=== PATIENT | male | born 1950 | race Caucasian/White ===

== ENCOUNTER 2018-03-22 15:02 | Emergency (ER) | payer OTHER, SELFPAY ==
[2018-03-22 15:19] VITALS: BP 163/95; PULSE 110; RESP 26; TEMP 36.1; O2SAT 96; BMI 22.5
--- NOTE | 2018-03-22 15:27 | DI.CT.S_ITS ---
PROCEDURE: CT ANGIO CHEST PE PROTOCOL INDICATIONS: chest pain with lung cancer TECHNIQUE: After the administration of intravenous contrast, 2 mm thick sections acquired from the pulmonary apices to the posterior costophrenic angles. 3-dimensional maximum intensity projection (MIP) coronal and sagittal reformats were then acquired through the thorax. For radiation dose reduction, the following was used: automated exposure control, adjustment of mA and/or kV according to patient size. COMPARISON: [facility], CT, ABDOMEN/PELVIS WITH CONTRAST, 01/12/2018, 13:35. [facility], CT, THORAX WITH CONTRAST, 01/22/2018, 8:59. FINDINGS: Image quality: Impression limited by suboptimal contrast opacification and beam hardening artifact from patient's inability to raise arms. Pulmonary arteries: Pulmonary arteries demonstrate no intraluminal filling defects to suggest central pulmonary embolism. Evaluation of distal subsegmental branches is limited by suboptimal contrast opacification. There is enlargement of the pulmonary arteries, with the main pulmonary artery measuring up to 3.2 cm suggestive of pulmonary arterial hypertension. Lungs and pleura: There is a right lower lobe perihilar mass which is increased in size, measuring approximately 4.9 x 3.0 cm in transverse dimension. There is associated adjacent consolidation within the right lower lobe along the major fissure compatible with postobstructive consolidation. There is also bandlike consolidation or atelectasis within the inferior right middle lobe. There are moderate bilateral emphysematous changes with a basilar predominance. No pleural effusions or pneumothorax. Central and peripheral airways are patent. Mediastinum: Heart size is normal, without pericardial effusion. Thoracic aorta is normal in caliber and enhancement. There is markedly increased mediastinal and hilar lymphadenopathy with confluent enlarged lymph nodes encasing the trachea, elodia, and bilateral bronchial structures. There is also encasement of the pulmonary arteries without associated high-grade intrinsic mass effect. Esophagus is normal in caliber, without hiatal hernia. Bones and chest wall: No suspicious bony lesions. Ribs and thoracic spine appear intact throughout. There is markedly increased confluent lymphadenopathy at the thoracic inlet including bilateral lower cervical and supraclavicular lymphadenopathy. No axillary lymphadenopathy. Abdomen: Visualized upper abdomen redemonstrates multiple hepatic cysts and small low-density foci in the liver which are too small to characterize. The previous identified right hepatic lobe hemangioma is not well-visualized on the current phase of imaging. IMPRESSION: 1. No central pulmonary embolism, with evaluation of distal subsegmental branches limited by suboptimal contrast opacification. 2. Findings consistent with progression of disease with increase in size of a right lower lobe perihilar mass with increased post obstructive consolidation in the right lower lobe, increased mediastinal and hilar lymphadenopathy as well as supraclavicular and lower cervical lymphadenopathy. 3. Multiple hepatic cysts identified as well as smaller low-density foci likely representing cysts. Dictated by: Dwayne Katz M.D. on 03/22/2018 at 17:04 Approved by: Dwayne Katz M.D. on 03/22/2018 at 17:13
[2018-03-22 15:51] LABS: Add Manual Diff / Slide Review NO; Basophils Percent Auto 0.8 % (0-2); Eosinophils Percent Auto 5.2 % (2-4); Hematocrit 41.7 % (41-53); Lymphocytes Percent Auto 13.2 % (25-40); Mean Corpuscular HGB Conc 33.6 % (30-36); Mean Corpuscular Hemoglobin 30.6 PG (26-34); Mean Corpuscular Volume 91.1 fL (80-100); Monocytes Percent Auto 8.4 % (3-14); Neutrophils Absolute Auto 8900 /uL (3000-5900); Neutrophils Percent Auto 72.4 % (50-75); Platelet Count 273 X10^3/uL (150-400); Red Blood Cell Count 4.58 X10^6/uL (4.5-5.9); Red Cell Distribution Width 13.1 % (11.6-14.8); White Blood Cell Count 12.3 X10^3/uL (4.5-11.0)
[2018-03-22 16:10] LABS: Alanine Aminotransferase 33 IU/L (21-72); Albumin 4.1 g/dL (3.5-5.0); Albumin Globulin Ratio 1.1 (1.0-2.8); Alkaline Phosphatase 87 U/L (38-126); Aspartate Aminotransferase 31 IU/L (17-59); BUN Creatinine Ratio 23.8 (6-22); Bilirubin Total 0.6 mg/dL (0.2-1.3); Calcium 9.1 mg/dL (8.4-10.2); Creatine Kinase 71 U/L (55-170); Estimated Glomerular Filt Rate > 60.0 mL/min (>60); Globulin 3.7 g/dL (1.7-4.1); Glucose 138 mg/dL (80-110); HEMOLYSIS 24 (0-50); Lipase 45 U/L (23-300); Potassium 4.3 mmol/L (3.4-5.1); Sodium 136 mmol/L (137-145); Total Protein 7.8 g/dL (6.3-8.2)
--- NOTE | 2018-03-22 16:14 | ED_ITS ---
HPI - SOB/Dyspnea General Chief Complaint: Shortness of Breath/Dyspnea Stated Complaint: UNABLE TO BREATH WELL HAS LUNG CANCER Time Seen by Provider: 03/22/18 15:24 Source: patient Mode of arrival: ambulatory Limitations: no limitations History of Present Illness The patient is a 67-year-old male who presents with increasing right-sided. He was recently diagnosed with lung cancer. He has a known lung mass on the right side currently being worked up. Awaiting for final biopsy results before starting chemo. He is having increasing pain with some shortness of breath. He has not taken anything at home for pain. It seems to be in the same place on nonradiating. It has been progressively getting worse over the last couple days but definitely worse today. MD Complaint: shortness of breath and chest pain Related Data Home Medications Medication Instructions Recorded Confirmed amoxicillin-pot clavulanate 1 tab PO TID 03/22/18 03/22/18 ibuprofen 400 mg PO QID PRN 03/22/18 03/22/18 Allergies Allergy/AdvReac Type Severity Reaction Status Date / Time No Known Drug Allergies Allergy Verified 03/22/18 15:22 Review of Systems Review of Systems All systems reviewed & are unremarkable except as noted in HPI and below Constitutional Denies chills, Denies fever(s), Denies lethargy and Denies weakness Cardiovascular Reports chest pain (Right-sided), Denies irregular heart rhythm, Denies lightheadedness, Denies palpitations and Denies orthopnea Respiratory Reports as per HPI Gastrointestinal Gastrointestinal: Denies abdominal pain, Denies change in bowel habits, Denies diarrhea, Denies nausea and Denies vomiting Musculoskeletal Denies back pain, Denies muscle weakness, Denies numbness and Denies tingling Integumentary/Breasts Denies pruritus, Denies erythema, Denies rash and Denies wounds Neurologic Denies numbness, Denies tingling and Denies weakness Endocrine Denies palpitations PFSH Medical History Metastatic lung cancer (metastasis from lung to other site) (Acute) TIA (transient ischemic attack) (Acute) Social History Smoking Status: Former smoker Exam Initial Vital Signs Initial Vital Signs: Vital Signs Temperature 97.0 F L 03/22/18 15:19 Pulse Rate 110 H 03/22/18 15:19 Respiratory Rate 26 H 03/22/18 15:19 Blood Pressure 163/95 H 03/22/18 15:19 Pulse Oximetry 96 03/22/18 15:19 Const General: cooperative and well developed Nutritional Appearance: well nourished Orientation: alert, awake, oriented x3 and not confused Chest Chest: normal inspection of the chest Resp Effort & Inspection: normal respiratory effort, able to speak in complete sentences, no respiratory distress and no use of accessory muscles Auscultation: clear to auscultation bilaterally, no rales, no rhonchi and no wheezes Cardio Rate: regular rate Rhythm: regular rhythm Heart Sounds: no click, no gallops, no murmurs and no rubs Pulses: normal peripheral pulses Skin General: no rashes or lesions noted, No jaundice and No petechiae Neuro General: alert, oriented x3, gait normal and no focal motor deficits Speech: speech normal Course Orders Ordered: Discontinued Medications Sodium Chloride (Normal Saline 0.9%) 1,000 mls @ 150 mls/hr IV CONT ONEL Last Infusion: 03/22/18 17:58 Dose: 0 mls/hr Infusion: 03/22/18 17:03 Dose: 1,000 mls/hr Admin: 03/22/18 17:01 Dose: 150 mls/hr Ketorolac Tromethamine (Toradol) 30 mg IV NOW ONE Stop: 03/22/18 16:09 Last Admin: 03/22/18 17:01 Dose: 30 mg Vital Signs - 8 hr 03/22/18 15:19 03/22/18 16:30 03/22/18 18:02 Temperature 97.0 F L Pulse Rate 110 H 96 H 90 Respiratory Rate 26 H 15 18 Blood Pressure 163/95 H 133/75 H Blood Pressure [Right Arm] 138/89 H Pulse Oximetry 96 95 96 MDM - SOB/Dyspnea Differential Diagnosis Likely congestive heart failure, community acquired pneumonia, asthma with exacerbation and pulmonary embolism Medical Records Attestation: I reviewed the patient's medical records. Lab Data Attestation: I reviewed the patient's lab results. Result diagrams: 03/22/18 15:40 03/22/18 15:40 Lab Results 03/22/18 03/22/18 Range/Units 15:40 15:40 WBC 12.3 H (4.5-11.0) X10^3/uL RBC 4.58 (4.5-5.9) X10^6/uL Hgb 14.0 (13.5-17.5) g/dL Hct 41.7 (41-53) % MCV 91.1 (80-100) fL MCH 30.6 (26-34) PG MCHC 33.6 (30-36) % RDW 13.1 (11.6-14.8) % Plt Count 273 (150-400) X10^3/uL Neut % (Auto) 72.4 (50-75) % Lymph % (Auto) 13.2 L (25-40) % Marion % (Auto) 8.4 (3-14) % Eos % (Auto) 5.2 H (2-4) % Baso % (Auto) 0.8 (0-2) % Neut # (Auto) 8900 H (7645-1001) /uL Sodium 136 L (137-145) mmol/L Potassium 4.3 (3.4-5.1) mmol/L Chloride 96.0 L (98-107) mmol/L Carbon Dioxide 26.0 (22-32) mmol/L BUN 19.0 (9-20) mg/dL Creatinine 0.80 (0.66-1.25) mg/dL Estimated GFR > 60.0 (>60) mL/min BUN/Creatinine Ratio 23.8 H (6-22) Glucose 138 H (80-110) mg/dL Calcium 9.1 (8.4-10.2) mg/dL Total Bilirubin 0.6 (0.2-1.3) mg/dL AST 31 (17-59) IU/L ALT 33 (21-72) IU/L Alkaline Phosphatase 87 (38-126) U/L Total Creatine Kinase 71 (55-170) U/L CK-MB (CK-2) TNP Troponin I < 0.012 (0.01-0.034) ng/mL Total Protein 7.8 (6.3-8.2) g/dL Albumin 4.1 (3.5-5.0) g/dL Globulin 3.7 (1.7-4.1) g/dL Albumin/Globulin Ratio 1.1 (1.0-2.8) Lipase 45 (23-300) U/L Imaging Data CT PE: Radiologist's impression: PROCEDURE: CT ANGIO CHEST PE PROTOCOL INDICATIONS: chest pain with lung cancer TECHNIQUE: After the administration of intravenous contrast, 2 mm thick sections acquired from the pulmonary apices to the posterior costophrenic angles. 3-dimensional maximum intensity projection (MIP) coronal and sagittal reformats were then acquired through the thorax. For radiation dose reduction, the following was used: automated exposure control, adjustment of mA and/or kV according to patient size. COMPARISON: [facility], CT, ABDOMEN/PELVIS WITH CONTRAST, 01/12/2018, 13: 35. [facility], CT, THORAX WITH CONTRAST, 01/22/2018, 8:59. FINDINGS: Image quality: Impression limited by suboptimal contrast opacification and beam hardening artifact from patient's inability to raise arms. Pulmonary arteries: Pulmonary arteries demonstrate no intraluminal filling defects to suggest central pulmonary embolism. Evaluation of distal subsegmental branches is limited by suboptimal contrast opacification. There is enlargement of the pulmonary arteries, with the main pulmonary artery measuring up to 3.2 cm suggestive of pulmonary arterial hypertension. Lungs and pleura: There is a right lower lobe perihilar mass which is increased in size, measuring approximately 4.9 x 3.0 cm in transverse dimension. There is associated adjacent consolidation within the right lower lobe along the major fissure compatible with postobstructive consolidation. There is also bandlike consolidation or atelectasis within the inferior right middle lobe. There are moderate bilateral emphysematous changes with a basilar predominance. No pleural effusions or pneumothorax. Central and peripheral airways are patent. Mediastinum: Heart size is normal, without pericardial effusion. Thoracic aorta is normal in caliber and enhancement. There is markedly increased mediastinal and hilar lymphadenopathy with confluent enlarged lymph nodes encasing the trachea, elodia , and bilateral bronchial structures. There is also encasement of the pulmonary arteries without associated high-grade intrinsic mass effect. Esophagus is normal in caliber, without hiatal hernia. Bones and chest wall: No suspicious bony lesions. Ribs and thoracic spine appear intact throughout. There is markedly increased confluent lymphadenopathy at the thoracic inlet including bilateral lower cervical and supraclavicular lymphadenopathy. No axillary lymphadenopathy. Abdomen: Visualized upper abdomen redemonstrates multiple hepatic cysts and small low-density foci in the liver which are too small to characterize. The previous identified right hepatic lobe hemangioma is not well-visualized on the current phase of imaging. IMPRESSION: 1. No central pulmonary embolism, with evaluation of distal subsegmental branches limited by suboptimal contrast opacification. 2. Findings consistent with progression of disease with increase in size of a right lower lobe perihilar mass with increased post obstructive consolidation in the right lower lobe, increased mediastinal and hilar lymphadenopathy as well as supraclavicular and lower cervical lymphadenopathy. 3. Multiple hepatic cysts identified as well as smaller low-density foci likely representing cysts. Dictated by: Dwayne Katz M.D. on 03/22/2018 at 17:04 Approved by: Dwayne Katz M.D. on 03/22/2018 at 17:13 ECG Data Attestation: I personally reviewed and interpreted this ECG as follows: Prior ECG tracings: available for review Interpretation: Normal sinus rhythm rate [address] changes similar to previous EKG MDM Narrative Medical decision making narrative: Patient feeling much better after Toradol. Mass is likely growing which is causing pain. He is supposed to get an MRI of his brain this week difficulty scheduling that. He is given information. Discharge Plan Departure Patient Disposition: Home, Self-Care Clinical Impression: Lung mass Discharge Date/Time: 03/22/18 18:01 Interventions: ED Discharge Assessment Last Done: 03/22/18 18:02 Instructions: Lung Cancer Activity Restrictions/Additional Instructions: *You have been diagnosed with lung mass *What to do: [facility] scheduling for MRI at [phone] *Take medications as directed -ibuprofen 600 mg every 6-8 hours -Tylenol 650 mg every 4-6 hr *Follow up with your primary care provider in 2-3 days *Return to ER if you should have increasing chest pain, shortness of breath or any new, worsening or concerning symptoms Prescriptions: No Action ibuprofen 400 mg Tablet 400 mg PO QID PRN (Reason: Pain (Scale Score 1-3)) RF: 0 amoxicillin-pot clavulanate 500-125 mg Tablet 1 tab PO TID RF: 0 Referrals: Kei Tan MD [Primary Care Provider] -
[2018-03-22 16:27] LABS: Troponin I < 0.012 ng/mL (0.01-0.034)
[2018-03-22 16:30] VITALS: BP 138/89; PULSE 96; RESP 15; O2SAT 95
[2018-03-22] MEDS: KETOROLAC 60 MG/2 ML VIAL 30 MG IV (17:01)
[2018-03-22] MEDS: SODIUM CHLORIDE 0.9% 1,000 ML 150 ML IV (17:01)
[2018-03-22 18:02] VITALS: BP 133/75; PULSE 90; RESP 18; O2SAT 96
== END 2018-03-22 18:01 | disposition home or self-care (01) ==
PROVIDERS: Emergency Provider Emergency Medicine; Family Provider Family Medicine; PCP Family Medicine
DX: R91.8 Other nonspecific abnormal finding of lung field (principal); C34.90 Malignant neoplasm of unspecified part of unspecified bronchus or lung
CPT/HCPCS: 36591; 71275; 80053; 82550; 82553; 83690; 84484; 85025; 93005; 96361; 96374; 99283; 99285; J1885; Q9967

== ENCOUNTER → 2018-03-29 16:14 | Outpatient (CLI) | payer OTHER, SELFPAY ==
--- NOTE | 2018-03-29 16:15 | DI.MRI.S_ITS ---
PROCEDURE: MR HEAD/BRAIN WO/W CON INDICATIONS: Staging metastatic lung ca TECHNIQUE: Noncontrast axial T1 spin echo, axial T2 fast spin echo, sagittal and axial FLAIR, coronal T2 fast spin echo, axial gradient echo, axial diffusion and ADC through the brain. After the administration of contrast, axial and coronal 3D VIBE or T1 spin echo with fat saturation through the brain. COMPARISON: [facility], , STROKE PROTOCOL, 06/25/2016, 15:39. FINDINGS: Image quality: Excellent. CSF Spaces: Basal cisterns are patent. No extra-axial fluid collections. Ventricles are normal in size and shape. Brain: No midline shift. No intracranial bleeds or masses. No abnormal intracranial enhancement. The brainstem appears normal. Diffusion-weighted images demonstrate no acute ischemic insults. Increased T2 signal in the white matter most prominent in the right parietal and left frontal lobes slightly increased since 2016. Normal intravascular flow voids are present. Skull and face: Calvarial marrow is normal in signal. Orbits appear normal. Sinuses: Sinuses and mastoids appear clear. IMPRESSION: 1. No MRI evidence of intracranial metastasis. 2. Increased T2 signal in the white matter of the left frontal and right parietal lobes most consistent with chronic benign ischemic change slightly progressed since the previous study. Dictated by: Isiah Rice M.D. on 03/29/2018 at 17:03 Approved by: Isiah Rice M.D. on 03/29/2018 at 17:10
== END ==
PROVIDERS: PCP Family Medicine; Visit Provider Internal Medicine Hematology & Oncology
DX: C34.90 Malignant neoplasm of unspecified part of unspecified bronchus or lung (principal)
CPT/HCPCS: 70553; A9579

== ENCOUNTER → 2018-04-06 15:48 | Outpatient (CLI) | payer OTHER, SELFPAY ==
[2018-04-07 06:53] LABS: Specimen Label KIT TEST
== END ==
PROVIDERS: PCP Family Medicine; Visit Provider Internal Medicine Hematology & Oncology
DX: C34.31 Malignant neoplasm of lower lobe, right bronchus or lung (principal)
CPT/HCPCS: 36415

== ENCOUNTER → 2018-04-09 11:08 | Outpatient (CLI) | payer OTHER, SELFPAY ==
--- NOTE | 2018-04-09 12:07 | DI.CT.S_ITS ---
PROCEDURE: CT SOFT TISSUE NECK W CON INDICATIONS: STAGING lung ca TECHNIQUE: After the administration of intravenous contrast, 3.0 mm axial sections acquired from the sella to the aortic arch. Additional oblique axial 3.0 mm sections acquired through the pharynx. 3 mm thick coronal and sagittal reformats were generated. For radiation dose reduction, the following was used: automated exposure control. COMPARISON: [facility], CT, SOFT TISSUE NECK W CONTRAST, 10/02/2016, 12:15. FINDINGS: Image quality: Excellent. Lymph nodes: Enlarged supraclavicular lymph nodes are seen on both sides. A group of lymph nodes of the left supraclavicular region measures greater than 6 cm, when measured together. Vessels: Visualized vasculature appears patent. Neck spaces: On the prior examination, there was seen an enhancing lesion in the left floor of the mouth. This is no longer definitely seen. The oropharynx, nasopharynx, and pharynx demonstrate no mucosal lesions. The vocal cords, false vocal cords, pyriform sinuses, epiglottis, vallecula, and tongue base all appear normal. Extramucosal spaces appear unremarkable. Glands: The parotid and submandibular glands appear normal. Thyroid gland demonstrates no significant CT abnormality. Miscellaneous: Visualized brain and orbits appear normal. A small right-sided pleural effusion is seen. Mild emphysematous changes can be seen at the lung apices. Superficial soft tissues appear normal. Bones: No suspicious bony lesions. Visualized sinuses and mastoids appear unremarkable. Cervical spine degenerative changes are seen, with at least moderate disc space narrowing seen from C3-C4 through C6-C7. Mild grade 1 retrolisthesis is seen at C3-C4. IMPRESSION: Enlarged supraclavicular lymph nodes, left worse than right. The previously seen left floor of the mouth lesion is no longer seen. There is a small right-sided pleural effusion seen. Incidental note is made of: Cervical spine degenerative changes Dictated by: Gualberto Michel M.D. on 04/09/2018 at 12:19 Approved by: Gualberto Michel M.D. on 04/09/2018 at 12:24
--- NOTE | 2018-04-09 12:07 | DI.CT.S_ITS ---
PROCEDURE: CT CHEST ABD PEL W CON INDICATIONS: 67-year-old male with lung carcinoma. TECHNIQUE: After the administration of oral and intravenous contrast, 5 mm thick sections acquired from the lung apices to the symphysis. 5 mm coronal and sagittal reformats were performed, with additional 7 mm coronal MIP reformats through the lungs. For radiation dose reduction, the following was used: automated exposure control, adjustment of mA and/or kV according to patient size. COMPARISON: Merged With [facility], CT, CT ANGIO CHEST PE PROTOCOL, 03/22/2018, 16:18. Outside Film, [place], PET NECK TO MID THIGH, 02/12/2018, 17:13. Merged With [facility], CT, THORAX WITH CONTRAST, 01/22/2018, 8:59. Merged With [facility], CT, ABDOMEN/PELVIS WITH CONTRAST, 01/12/2018, 13:35. FINDINGS: Image quality: Excellent. CHEST: Lungs and pleura: Previously noted asymmetric right perihilar air space opacities and groundglass opacities have significantly decreased but not completely resolved. Scattered ground glass opacities are now present in the posterior left upper lobe. Basilar predominant multiple intrapulmonary cysts are again noted. Trace dependent right pleural effusion is now present. No pneumothorax. Central and peripheral airways appear patent and normal in caliber. Mediastinum: Heart size is normal. No pericardial effusion. Confluent bilateral supraclavicular adenopathy is again noted. Widespread mediastinal and bilateral hilar adenopathy is also unchanged. Thoracic aorta and central pulmonary arteries are normal in size. Esophagus is normal in caliber. No hiatal hernia. Chest wall: No axillary or supraclavicular adenopathy by size criteria. Thyroid gland is normal in size. ABDOMEN: Solid organs: Liver is normal in size, with multiple variably-sized hepatic cysts again noted. Additional 2.0 cm right hepatic lobe hemangioma is also present, with characteristic peripheral contrast puddling. Gallbladder wall thickness is normal. Biliary system is non dilated. Pancreas enhances normally. Spleen is normal in size and enhancement. No adrenal nodules. Kidneys demonstrate normal size and enhancement, without hydronephrosis. Peritoneum and bowel: Bowel loops demonstrate normal wall thickness and caliber. The appendix is normal. There is moderate sigmoid colon diverticulosis. No free fluid or air. Nodes and vessels: No retroperitoneal or mesenteric adenopathy by size criteria. Aorta and inferior vena cava are normal in size, with aortoiliac atherosclerosis. Miscellaneous: There is small fat-containing periumbilical ventral hernia. PELVIS: Genitourinary: Bladder wall thickness is normal. Prostate gland is normal in overall size. Miscellaneous: No inguinal hernias or adenopathy. Bones: No suspicious bony lesions. No vertebral body compression fractures. There is multilevel lumbar and lower thoracic spine disc degeneration. 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 IMPRESSION: 1. No significant interval change in bulky bilateral supraclavicular adenopathy, as well as mediastinal and bilateral hilar adenopathy. Patient will be scheduled for ultrasound-guided biopsy of the supraclavicular adenopathy. 2. Previously noted right perihilar pneumonia has decreased but not resolved. New clustered groundglass nodular opacities in the inferior left upper lobe are present, in a tree in bud morphology consistent with infectious small airways disease. 3. 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 4. Right hepatic lobe benign hemangioma again incidentally noted, as well as multiple variably sized hepatic cysts. 5. Moderate sigmoid colon diverticulosis. 6. Small fat-containing periumbilical ventral hernia. Dictated by: Edwar Merida M.D. on 04/09/2018 at 13:38 Approved by: Edwar Merida M.D. on 04/09/2018 at 14:03
== END ==
PROVIDERS: PCP Family Medicine; Visit Provider Internal Medicine Hematology & Oncology
DX: R59.0 Localized enlarged lymph nodes (principal); J18.9 Pneumonia, unspecified organism; D18.00 Hemangioma unspecified site; J90 Pleural effusion, not elsewhere classified; C34.31 Malignant neoplasm of lower lobe, right bronchus or lung
CPT/HCPCS: 70491; 71260; 74177; 80053; 82378; 85025; 85610; 85730; 99215; Q9967

== ENCOUNTER 2018-04-14 12:10 | Day surgery (SDC) | payer OTHER, SELFPAY ==
[2018-04-12 13:42] VITALS: BMI 24.4
--- NOTE | 2018-04-14 | DI.RAD.S_ITS ---
PROCEDURE: XR CHEST 1V INDICATIONS: PORT A CATH TECHNIQUE: One view of the chest was acquired. COMPARISON: [facility], CT, CT ANGIO CHEST PE PROTOCOL, 03/22/2018, 16:18. [facility], CT, CT CHEST ABD PEL W CON, 04/09/2018, 12:13. FINDINGS: Surgical changes and devices: Right-sided port with tip overlying the proximal SVC.. Lungs and pleura: No pleural effusions or pneumothorax. Lobulated mass density in the right lower lobe medially. Interstitial stranding densities again evident bilaterally.. Mediastinum: Mediastinal contours appear normal. Heart size is normal. Bones and chest wall: Soft tissue fullness in the left supraclavicular fossa compatible with known lymphadenopathy. No suspicious bony lesions. Overlying soft tissues appear unremarkable. IMPRESSION: 1. Interval placement of right-sided Port-A-Cath with expected appearance. 2. Bilateral diffuse pulmonary interstitial prominence. 3. Apparent right infrahilar mass. Dictated by: Alverto Uribe M.D. on 04/14/2018 at 14:38 Approved by: Alverto Uribe M.D. on 04/14/2018 at 14:43
[2018-04-14 12:35] VITALS: BP 124/81; PULSE 84; RESP 16; TEMP 37; O2SAT 95; BMI 24.4
[2018-04-14] MEDS: FAMOTIDINE 20 MG/50 ML PIGGYBACK 200 MG IV (12:50)
[2018-04-14] MEDS: LACTATED RINGERS 1,000 ML 42 ML IV (13:00)
[2018-04-14] MEDS: CEFAZOLIN 2 GM/100 ML FROZ.PIGGY IV (13:10)
--- NOTE | 2018-04-14 13:35 | SUR.OPER ---
Supine on padded OR bed, head on pillow, arm padded and tucked at side, legs uncrossed, safety belt at thigh, tape over blanket over lower legs .
[2018-04-14] MEDS: BUPIVACAINE 0.5% (PF) 30 ML VIAL INJ (13:43)
[2018-04-14] MEDS: LIDOCAINE 1% W/EPI INJ 20 ML INJ (13:43)
[2018-04-14] MEDS: SODIUM CHLORIDE 0.9% FLUSH 10 ML IV (13:45)
[2018-04-14 13:58] VITALS: BP 92/59; PULSE 80; RESP 16; TEMP 36.4; O2SAT 92
--- NOTE | 2018-04-14 13:58 | PM.HP.1 ---
History of Present Illness Date Patient Seen: 04/14/18 Time Patient Seen: 13:58 Chief complaint: hailey cath removal [id number] Narrative: Mr. Del Cid is a pleasant 67-year-old gentleman who was recently diagnosed with stage IV lung cancer. He presents here today to have a Port-A-Cath placed. He has a notable mass on the left side of his chest and underwent a node biopsy today. There is a Band-Aid present in the supraclavicular region. Patient History Medical History Chronic cough (Acute) GERD (gastroesophageal reflux disease) (Acute) HTN (hypertension) (Acute) Hyperlipidemia (Acute) Mass (Acute) Metastatic lung cancer (metastasis from lung to other site) (Acute) TIA (transient ischemic attack) (Acute) Family & Social History Family History: Reviewed 04/14/18 by Barby Son MD Social History: household members spouse Tobacco & Substance use: Smoking Status Never smoker alcohol intake frequency 0-2 drinks per day Substance Use Type does not use Meds Home Medications Medication Instructions Recorded Confirmed Type multivit,Ca,min-iron 8 mg-folic 1 tab PO DAILY tab 03/24/18 04/14/18 History acid 200 mcg-lycopene 600 mcg tablet hydrocodone-homatropine 5 mg-1.5 5 ml PO Q4-6H PRN #473 ml 04/05/18 04/14/18 Rx mg/5 mL syrup amlodipine 5 mg PO DAILY 04/12/18 04/14/18 History aspirin 81 mg PO DAILY 04/12/18 04/14/18 History ondansetron [Zofran ODT] 8 mg PO Q6H PRN 04/12/18 04/12/18 History sennosides-docusate sodium 1 tab PO PRN PRN 04/12/18 04/14/18 History [Senna-S] Allergies Allergy/AdvReac Type Severity Reaction Status Date / Time No Known Drug Allergies Allergy Verified 03/24/18 11:29 Review of Systems Review of Systems All systems reviewed & are unremarkable except as noted in HPI and below Exam Vital Signs (past 8 hours): Vital Signs - 8 hr 04/14/18 12:35 Temperature 98.6 F Pulse Rate 84 Respiratory Rate 16 Blood Pressure 124/81 H Pulse Oximetry 95 Pulse Oximetry 95 Oxygen Delivery Method Room Air Narrative Exam Narrative: Pleasant gentleman in no acute distress. HEENT: Normocephalic and atraumatic, pupils equal round reactive to light accommodation with anicteric sclera Neck: Notable asymmetry with a mass on the left side. Lungs: Essentially clear bilaterally Heart: Regular rate and rhythm Abdomen: Soft, nontender, active bowel sounds Extremities: Warm well perfused Assessment & Plan Plan: Assessment/Plan Narrative: Very pleasant man with a new diagnosis of stage IV lung cancer and a malignant colon polyp. He is in need of chemotherapy and is scheduled to start tomorrow. We have discussed the risks and benefits of right subclavian port placement and patient expressed a desire to have the procedure.
--- NOTE | 2018-04-14 14:01 | P.HP_ITS ---
History of Present Illness Date Patient Seen: 04/14/18 Time Patient Seen: 13:58 Chief complaint: hailey cath removal [id number] Narrative: Mr. Del Cid is a pleasant 67-year-old gentleman who was recently diagnosed with stage IV lung cancer. He presents here today to have a Port-A- Cath placed. He has a notable mass on the left side of his chest and underwent a node biopsy today. There is a Band-Aid present in the supraclavicular region. Patient History Medical History Chronic cough (Acute) GERD (gastroesophageal reflux disease) (Acute) HTN (hypertension) (Acute) Hyperlipidemia (Acute) Mass (Acute) Metastatic lung cancer (metastasis from lung to other site) (Acute) TIA (transient ischemic attack) (Acute) Family & Social History Family History: Reviewed 04/14/18 by Barby Son MD Social History: household members spouse Tobacco & Substance use: Smoking Status Never smoker alcohol intake frequency 0-2 drinks per day Substance Use Type does not use Meds Home Medications Medication Instructions Recorded Confirmed Type multivit,Ca,min-iron 8 mg-folic 1 tab PO DAILY tab 03/24/18 04/14/18 History acid 200 mcg-lycopene 600 mcg tablet hydrocodone-homatropine 5 mg-1.5 5 ml PO Q4-6H PRN #473 ml 04/05/18 04/14/18 Rx mg/5 mL syrup amlodipine 5 mg PO DAILY 04/12/18 04/14/18 History aspirin 81 mg PO DAILY 04/12/18 04/14/18 History ondansetron [Zofran ODT] 8 mg PO Q6H PRN 04/12/18 04/12/18 History sennosides-docusate sodium 1 tab PO PRN PRN 04/12/18 04/14/18 History [Senna-S] Allergies Allergy/AdvReac Type Severity Reaction Status Date / Time No Known Drug Allergies Allergy Verified 03/24/18 11:29 Review of Systems Review of Systems All systems reviewed & are unremarkable except as noted in HPI and below Exam Vital Signs (past 8 hours): Vital Signs - 8 hr 3 04/14/18 12:35 Temperature 98.6 F Pulse Rate 84 Respiratory Rate 16 Blood Pressure 124/81 H Pulse Oximetry 95 Pulse Oximetry 95 Oxygen Delivery Method Room Air Narrative Exam Narrative: Pleasant gentleman in no acute distress. HEENT: Normocephalic and atraumatic, pupils equal round reactive to light accommodation with anicteric sclera Neck: Notable asymmetry with a mass on the left side. Lungs: Essentially clear bilaterally Heart: Regular rate and rhythm Abdomen: Soft, nontender, active bowel sounds Extremities: Warm well perfused Assessment & Plan Plan: Assessment/Plan Narrative: Very pleasant man with a new diagnosis of stage IV lung cancer and a malignant colon polyp. He is in need of chemotherapy and is scheduled to start tomorrow. We have discussed the risks and benefits of right subclavian port placement and patient expressed a desire to have the procedure.
--- NOTE | 2018-04-14 14:01 | PM.OP.1 ---
Operative Date/Time/Diagnoses - Date of procedure: 04/14/18 Time of procedure: 14:01 Pre-op diagnosis: Lung cancer Post-op diagnosis: same Procedure & Clinicians Procedure: Right subclavian PowerPort placement Same procedure as scheduled: Yes Indications: Lung cancer Surgeon: Barby Son Click Yes if Unassisted: Yes Anesthesia Type: MAC +/- (Dr. Groev) Operative Notes Findings: Right subclavian port in good position in the superior vena cava Closure Type: primary Specimen(s): none sent Implants & Drains: Low-profile right subclavian power port Estimated Blood Loss (mL): 10 Procedure in detail: After obtaining informed consent, the patient was brought to the operating room and placed in the supine position on the operating table. Following successful induction of general endotracheal anesthesia, appropriate padding of all bony prominences, and placement of appropriate monitors, the right chest was prepped and draped in a standard surgical fashion. A timeout was held per SCOAP protocol. A mixture of local anesthetics was infiltrated in the deltopectoral groove on the right side. The right subclavian vein was accessed via the Seldinger technique and a wire was gently placed into the vein. Fluoroscopy was used to verify position of the wire in the subclavian vein. We next created a pocket of approximately 2 cm inferior to the access site of the vein. This was checked for size and found to fit the port nicely. The included tunneling device was used to place the tubing and the pocket connecting it to the access site of the subclavian vein. The tubing was trimmed to an appropriate length and connected to the Port-A-Cath. The Port-A-Cath was sewn into place in the pocket using interrupted Prolene sutures. The pocket was closed in 2 layers. The dilator and introducer were then gently passed over the wire and into the subclavian vein. The wire and dilator were removed leaving only the introducer. The tubing was then placed in the introducer and the introducer removed per fisheries technician's directions. The port was then flushed with saline solution and found to be functional and in good position. It was then hep-locked with 2000 units of heparin. The incision was closed in 2 layers with Vicryl and Monocryl sutures. Dermabond was applied to the skin. All sponge, needle, and instrument counts were correct at the conclusion of the case. Patient was allowed to awaken from anesthesia and taken to the post-anesthesia care unit in good condition. Complications: none Condition: stable Disposition: PACU Plan for aftercare: 1. Discharge to home 2. The port is ready for use
[2018-04-14 14:05] VITALS: BP 106/59; PULSE 79; RESP 19; O2SAT 93
[2018-04-14 14:10] VITALS: BP 121/71; PULSE 73; RESP 21; O2SAT 93
[2018-04-14 14:15] VITALS: BP 113/73; PULSE 79; RESP 16; O2SAT 92
[2018-04-14 14:54] VITALS: BP 127/77; PULSE 78; RESP 18; TEMP 36.2; O2SAT 94
== END 2018-04-14 15:05 | disposition home or self-care (01) ==
PROVIDERS: PCP Family Medicine; Visit Provider Surgery
PROC: (CPT 36561; principal; 2018-04-14 14:45)
DX: C34.90 Malignant neoplasm of unspecified part of unspecified bronchus or lung (principal); I10 Essential (primary) hypertension; Z45.2 Encounter for adjustment and management of vascular access device; K21.9 Gastro-esophageal reflux disease without esophagitis; E78.5 Hyperlipidemia, unspecified; C78.5 Secondary malignant neoplasm of large intestine and rectum
CPT/HCPCS: 36561; 71045; 76000; 76942; C1788; J0690; J1644; J2250; J2704; J3010

== ENCOUNTER → 2018-04-14 | Outpatient (CLI) | payer OTHER, SELFPAY ==
--- NOTE | 2018-04-14 | PATH_ITS ---
[facility] Accession Number: [id number] . 01 Material submitted: . LEFT SUPRACLAVICULAR LYMPH NODE . 02 Diagnosis: Left Supraclavicular Lymph Node, Needle Core Biopsies: Metastatic carcinoma, consistent with pulmonary origin. 04/16/2018 . 02 Comment: Given that this biopsy is of metastatic disease, molecular studies are deferred at this time; however, they can be performed upon request. . As part of routine chief vendor quality, Dr. Fuentes has reviewed this case and agrees with the above diagnosis. The preliminary finding of carcinoma was reported to Dr. Pearson by Dr. Perez Germain on 04/15/2018 at 12:10 p.m. The immunohistochemical finding of pulmonary origin adenocarcinoma was discussed with Dr. Pearson on 04/16/2018 at 1:40 p.m. . 02 Electronically signed: . Perez Germain MD, PhD, Pathologist NPI- [id number] . 01 Gross description: . Received in one formalin-filled container, labeled with the patient's name, designated left supraclavicular lymph node, are four 0.1 cm in diameter, cylindrical-shaped portions of tissue which range in length from 0.5 cm to 1.2 cm. The specimen is entirely submitted in one cassette. Collection date: 04/14/2018. Collection time: 9:30 a.m. Total fixation time: 12 hours, up to 24. ([id number]) /FRR . 02 Microscopic: . Sections are of fibrous stroma infiltrated by irregular epitheloid cells with nested and single cell architecture. No richie tissue is identified. To further classify the cells of interest, a panel of immunohistochemical stains is performed (each with an appropriately positive control) with the following results: . ROMARIO - Positive. TTF1 - Positive. Napsin A - Positive. Cytokeratin 7 - Positive. Cytokeratin 20 - Variably positive. CK5/6 - Negative. p40 - Rare positive cells. PSA - Negative. Villin - Negative. CDX2 - Negative. . The overall morphology and immuno profile are consistent with adenocarcinoma of pulmonary origin. . * This test was developed and its performance characteristics determined by [facility]. It has not been cleared or approved by the U.S. Food and Drug Administration. The FDA has determined that such clearance or approval is not necessary. This test is used for clinical purposes. It should not be regarded as investigational or for research. . 02 Pathologist provided ICD-10: C77.9 . 02 CPT . 164631, [id number], [id number] Performed at: 01 [facility] [address] [id number] MD Dwayne Cai MD Phone: [phone] Performed at: 02 [facility] [address] [place] [id number] MD Angelo Mota MD Phone: [phone]
--- NOTE | 2018-04-14 08:52 | DI.US.S_ITS ---
PROCEDURE: US GUIDE FOR BIOPSY INDICATIONS: ENLARGED SUPRACLAVICULAR LYMPH NODE TECHNIQUE: Real-time scanning was performed, locating a prominent left supraclavicular lymph node for biopsy. COMPARISON: None. FINDINGS: Following informed consent, the skin was prepped, draped and infiltrated with 1% lidocaine. Local anesthesia was administered through the subcutaneous tissues to the lymph node capsule. Under ultrasound guidance, a 20 gauge Temno guide needle was placed into the lymph node. Several core specimens were obtained. The needle was removed and compression applied followed by dry sterile dressing. Except for mild local bleeding, no complication. IMPRESSION: Successful needle core biopsy of an enlarged left supraclavicular lymph node. Histopathology pending. Dictated by: Alverto Uribe M.D. on 04/14/2018 at 13:47 Approved by: Alverto Uribe M.D. on 04/14/2018 at 14:04
== END ==
LOC: US 08:46
PROVIDERS: PCP Family Medicine; Visit Provider Internal Medicine Hematology & Oncology
DX: R59.0 Localized enlarged lymph nodes (principal); Z53.9 Procedure and treatment not carried out, unspecified reason
CPT/HCPCS: 76942

== ENCOUNTER → 2018-04-22 13:30 | Oncology outpatient (ONC) | payer OTHER, SELFPAY ==
[2018-04-08 15:23] VITALS: BP 119/82; PULSE 90; RESP 18; O2SAT 96
--- NOTE | 2018-04-08 18:40 | ONC.CONS ---
History of Present Illness - Data of Consult Primary Care Provider: Kei Tan MD - Consult Narrative Reason for consult: Stage IV poorly differentiated lung adenocarcinoma, in a never smoker Narrative: Mr. 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 It is only in the last few weeks that he has become significantly symptomatic with weight loss and a challenging cough with a rapid increase of mass lesions in the base of bilateral neck. His lung cancer was actually diagnosed incidentally. He had a colonoscopy by Dr. Solis on January 27, 2018 and was found to have changes in the left colon resembling possible diverticulitis and had several at polyps that were removed. Because of concern of diverticulitis as CT scan was ordered by Dr. Solis that incidentally revealed a mass in the base of the lung that was included in the abdominal CT. Of note his colon polyp at 20 cm which was a tubular adenoma had extensive high-grade dysplasia and areas that they are focally suspicious for invasive carcinoma. CT scan of abdomen and pelvis of January 12, 2018 had shown an incidental finding of a 3.3 x 2.9 right lower lobe mass, subsequent chest CT confirmed this mass with additional hilar, mediastinal and bilateral supraclavicular lymphadenopathy. PET scan of February 12, 2018 performed at [facility], report is available, showing multiple level 5 lymph nodes bilaterally at the base of neck with SUV of 12 as well as hypermetabolic richie disease in the superior mediastinum and hilar nodes. Right lower lobe mass hypermetabolic activity an SUV of 8.2. No evidence of disease in the skeletal system nor in the abdominal cavity. 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 Briones with [facility] pulmonology and underwent a bronchoscopy with EBUS on February 19, 2018 with transbronchial lymph node fine-needle aspiration at station 7 and station 10. Pathology showed a poorly differentiated adenocarcinoma with features suggestive for lung primary, positive for TTF 1 and napsin and CK7, focally positive for CK 20 negative for neuroendocrine markers. The tissue was sent to [facility] additional marker studies at despite of the limited amount available. Records from [facility] obtained and reviewed with the following pattern: EGFR mutation negative, Ros-1 negative, ALK rearrangement negative, B-VIOLETTE mutation negative. PDL-1 expression high with 100%. This appears as an unusual pattern for a never smoker adenocarcinoma, usually more likely with tolerable mutations and less prone to elevated PD L1 expression. The patient has had an protracted course of evaluations since then and has not he has received any treatment. This is started with referral after the abnormal CT scan seen with colonoscopy to [facility] which took a long time due to insurance issues regarding being out of network. He was 1st scheduled with [facility] [place] in [place] saw Dr. Oliva on March 18, 2018, and only after that was approved by [place] to have a 2nd opinion at [facility] which occurred on April 02, 2018. At [facility] he saw Dr. Zarate. At which time the ALK rearrangement study was still not available. Note was made of the fact that there was a very small amount of tissue with only fine-needle aspiration of transbronchial EBUS, from regional lymph nodes that were sent for histology and all these additional molecular tests and therefore question of further they can be presumed to be reliably negative in a never smoker. Meanwhile the patient has rapid increasing size of bilateral supraclavicular masses that are now tennis ball size bulging out at the base of the neck just within the past 2 weeks and would be easily accessible for adequate core biopsy tissue acquisition. He also has increasing cough at times with spitting up necrotic and blood-tinged tissue. Dr. Zarate has recommended initiation of combination chemo-immunotherapy with carboplatin/Alimta and Keytruda, to address the in disease progression initially but still search for additional targeted will mutations. [facility] blood test was drawn few days ago at [facility] apparently per patient. 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 He is a lifelong nonsmoker and has no history of alcoholism. 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 Family history no clustering of malignancies CC: Jordon Amato MD Home Medications and Allergies Home Medications Medication Instructions Recorded Confirmed Type ibuprofen 400 mg PO QID PRN 03/22/18 03/22/18 History aspirin 81 mg chewable tablet 81 mg PO DAILY 03/24/18 03/24/18 History multivit,Ca,min-iron 8 mg-folic tab PO tab 03/24/18 03/24/18 History acid 200 mcg-lycopene 600 mcg tablet hydrocodone-homatropine 5 mg-1.5 5 ml PO Q4-6H PRN #473 ml 04/05/18 Rx mg/5 mL syrup Allergies Allergy/AdvReac Type Severity Reaction Status Date / Time No Known Drug Allergies Allergy Verified 03/24/18 11:29 Medical History - Medical, Surgical, Family History Medical History: Medical History (Last Updated 04/08/18 @ 19:03 by Jordon Amato MD) GERD (gastroesophageal reflux disease) HTN (hypertension) Metastatic lung cancer (metastasis from lung to other site) TIA (transient ischemic attack) - Social History Smoking Status: Never smoker Review of Systems - Patient Self-Reported Symptoms SR respiratory issues: Cough, Shortness of breath, Mucous SR Gastrointestinal issues: Poor or no appetite, Constipation All systems PM: reviewed and no additional remarkable complaints except as stated Constitutional: weight loss Exam Vital signs: Last Vital Signs Pulse 90 04/08/18 15:23 Resp 18 04/08/18 15:23 BP 119/82 H 04/08/18 15:23 Pulse Ox 96 04/08/18 15:23 - Constitutional positive no acute distress - Routine Neck Exam Present: supple, lymphadenopathy Comments: Patient has extensive adenopathy in the base of the neck with conglomerate mass that is tennis ball size on both sides of the base of neck. No axillary adenopathy - Routine Chest/Breast/Axilla Exam Axillae: Absent: lymphadenopathy - Routine Respiratory Exam Comments: Decreased breath sounds on the right base otherwise negative, no stridor or wheezing - Routine Cardiovascular Exam Present: RRR, murmur - Routine Abdominal Exam Present: soft, normoactive bowel sounds Assessment and Plan (1) Malignant neoplasm of right lung stage 4 Current visit: Yes Status: Acute 04/08/18 19:09 67-year-old gentleman in usually excellent health, very pleasant, never smoker who was incidentally found to have a right lower lobe lung mass in late December 2017 after a colonoscopy. Details are summarized as under HPI. The colonoscopy had shown a tubular adenoma with high-grade dysplasia with areas of concern/focally suspicious for invasive carcinoma. This issue has not been further address due to the finding of a much more serious problem of advanced lung cancer. The collective workup in late December and early January showed a right lower lobe lung mass with involvement of hilar, mediastinal and bilateral supraclavicular lymph nodes and therefore non regional lymph node involvement, stage Al. He did not have any skeletal metastases on his PET scan of February 12 and no disease in the abdomen at that time and MRI was negative. Unfortunately the course of his workup, tissue acquisition and initial oncologic evaluation has been very protracted so that he is now 2 months out from his PET scan and has not yet started any therapy. He had tissue through [facility] by pulmonology with transbronchial FNA of mediastinal lymph node in late January 2018 confirming poorly differentiated adenocarcinoma. Molecular testing for prognostic evaluation has been performed on this scant amount of tissue, all of which have returned to be negative except for high expression of PD L1. There is large amount concerned that this pattern is unusual for a never smoker and additional testing should be performed to make sure that he truly has no targetable/actionable recycle driver mutation. He has bulky tennis ball size masses in his base of neck bilaterally that serve as easy access and plenty of tissue for further evaluation. I ordered a ultrasound-guided core biopsy of the base of neck mass by Radiology within the next couple of days. This sample can be later used also for foundation 1-CDX tissue testing which should be much more reliable in this question. Meanwhile he needs to get started as soon as possible with chemotherapy given the rapid progression of disease and symptomatology. We reviewed carboplatin AUC of 5/Alimta 500 mg/m2 IV q21 d and Keytruda at standard dose every 3 weeks for 4-6 cycles followed by maintenance therapy with Alimta and Keytruda, if no targetable mutation is identified. Since his imaging is now 2-month-old and current disease burden needs to be accurately measure to assess response correctly I am ordering a CT scan of neck chest abdomen and pelvis with contrast to be performed in the next few days. Urgent referral to surgery for hailey catheter placement. I am hopeful that all these procedures are performed at before next April 15 at which time we will start the 1st cycle of chemotherapy followed by Neulasta support with a palliative intent - Time Spent with Patient Approximately 1 hr and 25 min were spent in counseling and coordination of care
--- NOTE | 2018-04-08 19:02 | P.CONONC_ITS ---
History of Present Illness - Data of Consult Primary Care Provider: Kei Tan MD - Consult Narrative Reason for consult: Stage IV poorly differentiated lung adenocarcinoma, in a never smoker Narrative: Mr. 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 It is only in the last few weeks that he has become significantly symptomatic with weight loss and a challenging cough with a rapid increase of mass lesions in the base of bilateral neck. His lung cancer was actually diagnosed incidentally. He had a colonoscopy by Dr. Solis on January 27, 2018 and was found to have changes in the left colon resembling possible diverticulitis and had several at polyps that were removed. Because of concern of diverticulitis as CT scan was ordered by Dr. Solis that incidentally revealed a mass in the base of the lung that was included in the abdominal CT. Of note his colon polyp at 20 cm which was a tubular adenoma had extensive high-grade dysplasia and areas that they are focally suspicious for invasive carcinoma. CT scan of abdomen and pelvis of January 12, 2018 had shown an incidental finding of a 3.3 x 2.9 right lower lobe mass, subsequent chest CT confirmed this mass with additional hilar, mediastinal and bilateral supraclavicular lymphadenopathy. PET scan of February 12, 2018 performed at [facility], report is available, showing multiple level 5 lymph nodes bilaterally at the base of neck with SUV of 12 as well as hypermetabolic richie disease in the superior mediastinum and hilar nodes. Right lower lobe mass hypermetabolic activity an SUV of 8.2. No evidence of disease in the skeletal system nor in the abdominal cavity. 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 Briones with [facility] pulmonology and underwent a bronchoscopy with EBUS on February 19, 2018 with transbronchial lymph node fine-needle aspiration at station 7 and station 10. Pathology showed a poorly differentiated adenocarcinoma with features suggestive for lung primary, positive for TTF 1 and napsin and CK7, focally positive for CK 20 negative for neuroendocrine markers. The tissue was sent to [facility] additional marker studies at despite of the limited amount available. Records from [facility] obtained and reviewed with the following pattern: EGFR mutation negative, Ros-1 negative, ALK rearrangement negative, B-VIOLETTE mutation negative. PDL-1 expression high with 100%. This appears as an unusual pattern for a never smoker adenocarcinoma, usually more likely with tolerable mutations and less prone to elevated PD L1 expression. The patient has had an protracted course of evaluations since then and has not he has received any treatment. This is started with referral after the abnormal CT scan seen with colonoscopy to [facility] which took a long time due to insurance issues regarding being out of network. He was 1st scheduled with [facility] in [place] saw Dr. Oliva on March 18, 2018, and only after that was approved by [place] to have a 2nd opinion at [facility] which occurred on April 02, 2018. At [facility] he saw Dr. Zarate. At which time the ALK rearrangement study was still not available. Note was made of the fact that there was a very small amount of tissue with only fine-needle aspiration of transbronchial EBUS, from regional lymph nodes that were sent for histology and all these additional molecular tests and therefore question of further they can be presumed to be reliably negative in a never smoker. Meanwhile the patient has rapid increasing size of bilateral supraclavicular masses that are now tennis ball size bulging out at the base of the neck just within the past 2 weeks and would be easily accessible for adequate core biopsy tissue acquisition. He also has increasing cough at times with spitting up necrotic and blood- tinged tissue. Dr. Zarate has recommended initiation of combination chemo-immunotherapy with carboplatin/Alimta and Keytruda, to address the in disease progression initially but still search for additional targeted will mutations. [facility] blood test was drawn few days ago at [facility] apparently per patient. 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 He is a lifelong nonsmoker and has no history of alcoholism. 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 Family history no clustering of malignancies CC: Jordon Amato MD Home Medications and Allergies Home Medications Medication Instructions Recorded Confirmed Type ibuprofen 400 mg PO QID PRN 03/22/18 03/22/18 History aspirin 81 mg chewable tablet 81 mg PO DAILY 03/24/18 03/24/18 History multivit,Ca,min-iron 8 mg-folic tab PO tab 03/24/18 03/24/18 History acid 200 mcg-lycopene 600 mcg tablet hydrocodone-homatropine 5 mg-1.5 5 ml PO Q4-6H PRN #473 ml 04/05/18 Rx mg/5 mL syrup Allergies Allergy/AdvReac Type Severity Reaction Status Date / Time No Known Drug Allergies Allergy Verified 03/24/18 11:29 Medical History - Medical, Surgical, Family History Medical History: Medical History (Last Updated 04/08/18 @ 19:03 by Jordon Amato MD) GERD (gastroesophageal reflux disease) HTN (hypertension) Metastatic lung cancer (metastasis from lung to other site) TIA (transient ischemic attack) - Social History Smoking Status: Never smoker Review of Systems - Patient Self-Reported Symptoms SR respiratory issues: Cough, Shortness of breath, Mucous SR Gastrointestinal issues: Poor or no appetite, Constipation All systems PM: reviewed and no additional remarkable complaints except as stated Constitutional: weight loss Exam Vital signs: Last Vital Signs Pulse 90 04/08/18 15:23 Resp 18 04/08/18 15:23 BP 119/82 H 04/08/18 15:23 Pulse Ox 96 04/08/18 15:23 - Constitutional positive no acute distress - Routine Neck Exam Present: supple, lymphadenopathy Comments: Patient has extensive adenopathy in the base of the neck with conglomerate mass that is tennis ball size on both sides of the base of neck. No axillary adenopathy - Routine Chest/Breast/Axilla Exam Axillae: Absent: lymphadenopathy - Routine Respiratory Exam Comments: Decreased breath sounds on the right base otherwise negative, no stridor or wheezing - Routine Cardiovascular Exam Present: RRR, murmur - Routine Abdominal Exam Present: soft, normoactive bowel sounds Assessment and Plan (1) Malignant neoplasm of right lung stage 4 Current visit: Yes Status: Acute 04/08/18 19:09 67-year-old gentleman in usually excellent health, very pleasant, never smoker who was incidentally found to have a right lower lobe lung mass in late December 2017 after a colonoscopy. Details are summarized as under HPI. The colonoscopy had shown a tubular adenoma with high-grade dysplasia with areas of concern/focally suspicious for invasive carcinoma. This issue has not been further address due to the finding of a much more serious problem of advanced lung cancer. The collective workup in late December and early January showed a right lower lobe lung mass with involvement of hilar, mediastinal and bilateral supraclavicular lymph nodes and therefore non regional lymph node involvement, stage Al. He did not have any skeletal metastases on his PET scan of February 12 and no disease in the abdomen at that time and MRI was negative. Unfortunately the course of his workup, tissue acquisition and initial oncologic evaluation has been very protracted so that he is now 2 months out from his PET scan and has not yet started any therapy. He had tissue through [facility] by pulmonology with transbronchial FNA of mediastinal lymph node in late January 2018 confirming poorly differentiated adenocarcinoma. Molecular testing for prognostic evaluation has been performed on this scant amount of tissue, all of which have returned to be negative except for high expression of PD L1. There is large amount concerned that this pattern is unusual for a never smoker and additional testing should be performed to make sure that he truly has no targetable/actionable construction driver mutation. He has bulky tennis ball size masses in his base of neck bilaterally that serve as easy access and plenty of tissue for further evaluation. I ordered a ultrasound-guided core biopsy of the base of neck mass by Radiology within the next couple of days. This sample can be later used also for foundation 1-CDX tissue testing which should be much more reliable in this question. Meanwhile he needs to get started as soon as possible with chemotherapy given the rapid progression of disease and symptomatology. We reviewed carboplatin AUC of 5/Alimta 500 mg/m2 IV q21 d and Keytruda at standard dose every 3 weeks for 4-6 cycles followed by maintenance therapy with Alimta and Keytruda, if no targetable mutation is identified. Since his imaging is now 2-month-old and current disease burden needs to be accurately measure to assess response correctly I am ordering a CT scan of neck chest abdomen and pelvis with contrast to be performed in the next few days. Urgent referral to surgery for hailey catheter placement. I am hopeful that all these procedures are performed at before next April 15 at which time we will start the 1st cycle of chemotherapy followed by Neulasta support with a palliative intent - Time Spent with Patient Approximately 1 hr and 25 min were spent in counseling and coordination of care
--- NOTE | 2018-04-09 09:09 | PM.CHEMOCOU ---
Chemotherapy Counseling - History of present illness History of present illness: Jose is a 67-year-old male who presents to clinic today April 09, 2018 for chemotherapy counseling. He has been diagnosed with stage IV poorly differentiated lung adenocarcinoma, in a never smoker. Plan is to initiate treatment for carboplatin/altima Iv Q 21 days and keytruda Q 3 weeks 4-6 cycles followed by maintenance therapy with altima and keytruda, pending final results of target mutations. he will likely require GCSF support. Port a cath placement - General New Chemotherapy Patient: Yes Treatment Plan Reviewed: yes - Chemotherapy Counseling Chemotherapy Counseling: Chemotherapy Education: Jose Del Cid provided written information on all topics discussed. Written materials printed from www.[facility] and www.[facility].org. Jose was given an overview of cancer and mechanism of action of cancer cells, that cancer is caused by cells that are dividing rapidly, and out of control. Traditional chemotherapy works by targeting the fast dividing cells and killing them. Chemotherapy affecting healthy cells dividing quickly causes many of the side effects (hair follicles, bone marrow, mucus membranes). Overview of blood cell functions of white cells to fight infection, red cells to carry oxygen, and platelets to stop bleeding was discussed, and that when bone marrow is affected by chemo, there is a decrease in production of these cells. Home care of the patient following chemotherapy was discussed. Body fluids will be contaminated for 48 hours following treatment, and any body fluids handled by caregivers should be handled wearing gloves, surfaces need to be cleaned with soap and water, any soiled linens or clothing need to be washed separately in hot water, toilet lid should be closed when flushing, person cleaning the toilet should wear gloves. How chemotherapy is administered by the RN?s in the clinic, that orders are double checked by pharmacy and checked again by two RN?s prior to administration. Nurses wear protective gear to prevent exposure to them of the chemotherapy agents which can also cause cancer. Cancer center information discussed and written hand out provided listing on-call oncologist available weekends and after hours triage R.N. hours and infusion room guide. New patient binder given to Jose, which includes clinic names, phone numbers, clinic information, calendar, cancer glossary, and list of resources. Handout on advanced directives Common side effects of chemotherapy were discussed with self care tips for prevention of complications. Information also provided in writing. These included: Low blood counts (anemia, thrombocytopenia, neutropenia) Hair loss (alopecia) Nausea and vomiting Decreased appetite Loss of fertility Diarrhea Mouth sores Constipation Peripheral neuropathy Chemo brain/cognitive changes Fatigue Instructions on when to call your healthcare team or on-call physician immediately: Fever of 100.4 or higher, chills, any signs of infection Shortness of breath, wheezing, difficulty breathing, closing of throat, swelling of face, hives (signs of possible allergic reaction) Chest pain, fast heart beat or feelings of a different heart rhythm Swelling of an extremity with or without pain signs of stroke Instructions on when to call your healthcare team within the next 24 hours Nausea that interferes with ability to eat and unrelieved with prescribed medication Diarrhea (4-6 episodes in 24 hour period). Unusual bleeding or bruising Black or tarry stools, or blood in your stools Blood in the urine pain or burning with urination Extreme fatigue (unable to perform self-care activities) Mouth sores or sore areas in your mouth Bad headache Dizziness or lightheadedness Large weight gain over a short period of time General self-care tips while undergoing treatment discussed were as follows. Written materials were provided covering in detail and additional self care tips. Drink at least 2-3 quarts (8-10 glasses) of no-caffeinated beverages daily unless you are instructed otherwise and empty your bladder frequently Report any concerning symptoms to your healthcare team Avoid crowds and sick people, wash your hands frequently Use a soft bristled toothbrush, rinse three times a day with 1 tsp baking soda or 1 tsp salt mixed with warm water Avoid any mouthwashes or oral and skin products containing alcohol or fragrances Use electric razors to avoid cutting yourself Avoid contact sports or activities that could cause head injury or bleeding Avoid sun exposure, wear SPF 15 or higher, wear protective clothing Get plenty of rest, meter your activities Maintain good nutrition Avoid alcoholic beverages Attend your scheduled appointments and lab draws Treatment regimen reviewed and medications were discussed with attention to specific side effects and self care for the pt?s treatment regimen which includes [carboplatin, altima, keytruda]. Jose was provided with literature regarding [these chemotherapy agents] and common side effects. Additionally, Jose was provided with literature regarding the diagnosis of [lung cancer]. Jose instructed to read literature at home. Keep a list of questions which we are happy to go over at future visits. For any urgent questions please feel free to call any time. - Response to Teaching Response to Teaching: Verbalizes Understanding - Referrals Referrals: Matchbook Maker (referral to MANDARIN TUTOR Margot Duarte noting the dx of st IV lung cancer he and family will benefit from MANDARIN TUTOR involvement)
--- NOTE | 2018-04-09 09:15 | P.CHEMO_ITS ---
Chemotherapy Counseling - History of present illness History of present illness: Jose is a 67-year-old male who presents to clinic today April 09, 2018 for chemotherapy counseling. He has been diagnosed with stage IV poorly differentiated lung adenocarcinoma, in a never smoker. Plan is to initiate treatment for carboplatin/altima Iv Q 21 days and keytruda Q 3 weeks 4-6 cycles followed by maintenance therapy with altima and keytruda, pending final results of target mutations. he will likely require GCSF support. Port a cath placement - General New Chemotherapy Patient: Yes Treatment Plan Reviewed: yes - Chemotherapy Counseling Chemotherapy Counseling: Chemotherapy Education: Jose Del Cid provided written information on all topics discussed. Written materials printed from www.chem[facility].[employer] and www.[facility].org. Jose was given an overview of cancer and mechanism of action of cancer cells, that cancer is caused by cells that are dividing rapidly, and out of control. Traditional chemotherapy works by targeting the fast dividing cells and killing them. Chemotherapy affecting healthy cells dividing quickly causes many of the side effects (hair follicles, bone marrow, mucus membranes). Overview of blood cell functions of white cells to fight infection, red cells to carry oxygen, and platelets to stop bleeding was discussed, and that when bone marrow is affected by chemo, there is a decrease in production of these cells. Home care of the patient following chemotherapy was discussed. Body fluids will be contaminated for 48 hours following treatment, and any body fluids handled by caregivers should be handled wearing gloves, surfaces need to be cleaned with soap and water, any soiled linens or clothing need to be washed separately in hot water, toilet lid should be closed when flushing, person cleaning the toilet should wear gloves. How chemotherapy is administered by the RN?s in the clinic, that orders are double checked by pharmacy and checked again by two RN?s prior to administration. Nurses wear protective gear to prevent exposure to them of the chemotherapy agents which can also cause cancer. Cancer center information discussed and written hand out provided listing on- call oncologist available weekends and after hours triage R.N. hours and infusion room guide. New patient binder given to Jose, which includes clinic names, phone numbers, clinic information, calendar, cancer glossary, and list of resources. Handout on advanced directives Common side effects of chemotherapy were discussed with self care tips for prevention of complications. Information also provided in writing. These included: Low blood counts (anemia, thrombocytopenia, neutropenia) Hair loss (alopecia) Nausea and vomiting Decreased appetite Loss of fertility Diarrhea Mouth sores Constipation Peripheral neuropathy Chemo brain/cognitive changes Fatigue Instructions on when to call your healthcare team or on-call physician immediately: Fever of 100.4 or higher, chills, any signs of infection Shortness of breath, wheezing, difficulty breathing, closing of throat, swelling of face, hives (signs of possible allergic reaction) Chest pain, fast heart beat or feelings of a different heart rhythm Swelling of an extremity with or without pain signs of stroke Instructions on when to call your healthcare team within the next 24 hours Nausea that interferes with ability to eat and unrelieved with prescribed medication Diarrhea (4-6 episodes in 24 hour period). Unusual bleeding or bruising Black or tarry stools, or blood in your stools Blood in the urine pain or burning with urination Extreme fatigue (unable to perform self-care activities) Mouth sores or sore areas in your mouth Bad headache Dizziness or lightheadedness Large weight gain over a short period of time General self-care tips while undergoing treatment discussed were as follows. Written materials were provided covering in detail and additional self care tips. Drink at least 2-3 quarts (8-10 glasses) of no-caffeinated beverages daily unless you are instructed otherwise and empty your bladder frequently Report any concerning symptoms to your healthcare team Avoid crowds and sick people, wash your hands frequently Use a soft bristled toothbrush, rinse three times a day with 1 tsp baking soda or 1 tsp salt mixed with warm water Avoid any mouthwashes or oral and skin products containing alcohol or fragrances Use electric razors to avoid cutting yourself Avoid contact sports or activities that could cause head injury or bleeding Avoid sun exposure, wear SPF 15 or higher, wear protective clothing Get plenty of rest, meter your activities Maintain good nutrition Avoid alcoholic beverages Attend your scheduled appointments and lab draws Treatment regimen reviewed and medications were discussed with attention to specific side effects and self care for the pt?s treatment regimen which includes [carboplatin, altima, keytruda]. Jose was provided with literature regarding [these chemotherapy agents] and common side effects. Additionally, Jose was provided with literature regarding the diagnosis of [ lung cancer]. Jose instructed to read literature at home. Keep a list of questions which we are happy to go over at future visits. For any urgent questions please feel free to call any time. - Response to Teaching Response to Teaching: Verbalizes Understanding - Referrals Referrals: Air Defense Control Officer (referral to SENIOR PHARMACY TECHNICIAN Margot Duarte noting the dx of st IV lung cancer he and family will benefit from SENIOR PHARMACY TECHNICIAN involvement)
[2018-04-09 09:58] LABS: Add Manual Diff / Slide Review NO; Basophils Percent Auto 0.2 % (0-2); Eosinophils Percent Auto 6.2 % (2-4); Hematocrit 40.6 % (41-53); Hemoglobin 13.6 g/dL (13.5-17.5); Mean Corpuscular HGB Conc 33.5 % (30-36); Mean Corpuscular Hemoglobin 30.8 PG (26-34); Mean Corpuscular Volume 91.8 fL (80-100); Monocytes Percent Auto 10.8 % (3-14); Neutrophils Absolute Auto 5000 /uL (3000-5900); Neutrophils Percent Auto 58.8 % (50-75); Platelet Count 344 X10^3/uL (150-400); Red Blood Cell Count 4.42 X10^6/uL (4.5-5.9); Red Cell Distribution Width 13.1 % (11.6-14.8); White Blood Cell Count 8.5 X10^3/uL (4.5-11.0)
[2018-04-09 10:02] LABS: INR 1.2 (0.9-1.3); Prothrombin Time 12.8 SECONDS (10.1-12.7)
[2018-04-09 10:05] LABS: PTT Partial Thromboplastin Tim 33 SECONDS (26.4-36.2)
[2018-04-09 10:10] LABS: Alanine Aminotransferase 44 IU/L (21-72); Albumin 3.8 g/dL (3.5-5.0); Alkaline Phosphatase 79 U/L (38-126); Aspartate Aminotransferase 29 IU/L (17-59); Bilirubin Total 0.4 mg/dL (0.2-1.3); Blood Urea Nitrogen 16 mg/dL (9-20); Carbon Dioxide 30 mmol/L (22-32); Chloride 98 mmol/L (98-107); Estimated Glomerular Filt Rate > 60.0 mL/min (>60); Globulin 3.8 g/dL (1.7-4.1); Glucose 99 mg/dL (80-110); HEMOLYSIS < 15 (0-50); Potassium 4.5 mmol/L (3.4-5.1); Sodium 141 mmol/L (137-145); Total Protein 7.6 g/dL (6.3-8.2)
[2018-04-09 10:41] LABS: Carcinoembryonic Antigen 6.2 ng/mL (0.1-3.0)
[2018-04-15 10:13] LABS: Add Manual Diff / Slide Review NO; Basophils Percent Auto 1.2 % (0-2); Eosinophils Percent Auto 3.1 % (2-4); Hematocrit 41.6 % (41-53); Hemoglobin 13.9 g/dL (13.5-17.5); Lymphocytes Percent Auto 21.5 % (25-40); Mean Corpuscular HGB Conc 33.4 % (30-36); Mean Corpuscular Hemoglobin 30.6 PG (26-34); Mean Corpuscular Volume 91.7 fL (80-100); Monocytes Percent Auto 11.2 % (3-14); Neutrophils Absolute Auto 5300 /uL (3000-5900); Platelet Count 328 X10^3/uL (150-400); Red Blood Cell Count 4.54 X10^6/uL (4.5-5.9); Red Cell Distribution Width 13.3 % (11.6-14.8); White Blood Cell Count 8.4 X10^3/uL (4.5-11.0)
[2018-04-15 10:25] LABS: Alanine Aminotransferase 36 IU/L (21-72); Albumin Globulin Ratio 1.1 (1.0-2.8); Alkaline Phosphatase 85 U/L (38-126); Aspartate Aminotransferase 36 IU/L (17-59); BUN Creatinine Ratio 21.3 (6-22); Bilirubin Total 0.7 mg/dL (0.2-1.3); Blood Urea Nitrogen 17 mg/dL (9-20); Calcium 9.2 mg/dL (8.4-10.2); Carbon Dioxide 31 mmol/L (22-32); Chloride 100 mmol/L (98-107); Estimated Glomerular Filt Rate > 60.0 mL/min (>60); Globulin 3.7 g/dL (1.7-4.1); Glucose 102 mg/dL (80-110); HEMOLYSIS 37 (0-50); Sodium 141 mmol/L (137-145); Total Protein 7.7 g/dL (6.3-8.2)
[2018-04-15 10:39] VITALS: BP 142/83; PULSE 94; RESP 16; TEMP 36.6; O2SAT 99
[2018-04-15 10:54] LABS: Potassium 4.5 mmol/L (3.4-5.1)
--- NOTE | 2018-04-15 10:59 | ONC.PN ---
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 For details please refer to my consult note of April 08, 2018. He has had no driver material handler mutation but the a.m. tissue available was fairly limited given it was a transbronchial FNA of a lymph node of mediastinum. I have sent for a core biopsy of a large palpable tennis ball size mass on the base of neck which was done yesterday. The plan for that would be after confirmation of the malignancy in that sample to be sent for foundation 1-CDX which will cover reliably driver material handler mutations as well as less common mutations and alterations. When he was seen at [facility] a peripheral blood sample was sent for [id number], and the results became available few days ago, to my opinion inconclusive, non consequential in regard to therapies. CT scan of neck chest abdomen and pelvis was updated on April 09 showing no new areas of metastases and will serve as baseline for future comparison after 2 cycles of chemotherapy. We will proceed with cycle 1 of carboplatin AUC of 5, Alimta 500 milligram/meters sq and Keytruda at standard dose every 3 weeks. We schedule him to receive G-CSF 480 mcg for 3 days starting Thursday and Thursday and Thursday of next week. We will see him back in 1 week to assess toxicity with labs. Some of his remaining questions and CT scans were reviewed with the patient. He had some leg cramps in the left calf but on exam there is absolutely no swelling or any sign of DVT. If he develops any swelling or migrating pain he should then go to the ER for a Doppler ultrasound but at this point there is no clinical sign. 04/15/18 11:11 - Time Spent with Patient Approximately 45 min were spent in counseling and coordination of care PN -Subjective Interval history: This is a pleasant 67-year-old gentleman, never smoker, whom I saw in initial consult on April 08, 2018 for stage IV poorly differentiated lung adenocarcinoma. For details please refer to my consult note of that date that is reviewed today. Limited tissue was sent for driver material handler mutations and was negative, however PD L1 expression was high, which is an atypical pattern for a never smoker. He has been developing rapidly worsening cough and massive supraclavicular adenopathy. He had a protracted period of workup due to insurance issues and referral patterns. A his PET scan was done on February 12, 2018 at [facility] and he had a brain MRI that was negative for DIGESTER OPERATOR metastases. The tissue was obtained through a transbronchial FNA by EBUS on February 19, 2018 from a mediastinal lymph node. However he has extensive bilateral supraclavicular adenopathy with plenty of tissue available for molecular studies. Because of the large time elapsed I repeated a CT of neck chest abdomen and pelvis on April 09, 2018 here at [facility] showing no new disease for example no liver metastases or skeletal lesions, however extensive adenopathy in the neck and mediastinum. I had also referred him for a hailey catheter placement urgently as well as a ultrasound-guided core biopsy of the as subclavicular mass which has happened yesterday. He is here to initiate the 1st cycle of chemotherapy with carboplatin, Alimta and Keytruda. - Patient Self-Reported Symptoms SR respiratory issues: Cough, Shortness of breath, Mucous SR Gastrointestinal issues: Poor or no appetite, Constipation SR Musculoskeletal issues: Muscle pain or cramps Results - Labs 04/15/18 10:04 04/15/18 10:04 Laboratory Last Values WBC 8.4 X10^3/uL (4.5-11.0) 04/15/18 10:04 RBC 4.54 X10^6/uL (4.5-5.9) 04/15/18 10:04 Hgb 13.9 g/dL (13.5-17.5) 04/15/18 10:04 Hct 41.6 % (41-53) 04/15/18 10:04 MCV 91.7 fL (80-100) 04/15/18 10:04 MCH 30.6 PG (26-34) 04/15/18 10:04 MCHC 33.4 % (30-36) 04/15/18 10:04 RDW 13.3 % (11.6-14.8) 04/15/18 10:04 Plt Count 328 X10^3/uL (150-400) 04/15/18 10:04 Neut % (Auto) 63.0 % (50-75) 04/15/18 10:04 Lymph % (Auto) 21.5 % (25-40) L 04/15/18 10:04 Gonzales % (Auto) 11.2 % (3-14) 04/15/18 10:04 Eos % (Auto) 3.1 % (2-4) 04/15/18 10:04 Baso % (Auto) 1.2 % (0-2) 04/15/18 10:04 Neut # (Auto) 5300 /uL ([id number]) 04/15/18 10:04 PT 12.8 SECONDS (10.1-12.7) H 04/09/18 09:47 INR 1.2 (0.9-1.3) 04/09/18 09:47 APTT 33 SECONDS (26.4-36.2) 04/09/18 09:47 Sodium 141 mmol/L (137-145) 04/15/18 10:04 Potassium 4.5 mmol/L (3.4-5.1) 04/15/18 10:04 Chloride 100 mmol/L (98-107) 04/15/18 10:04 Carbon Dioxide 31 mmol/L (22-32) 04/15/18 10:04 BUN 17 mg/dL (9-20) 04/15/18 10:04 Creatinine 0.80 mg/dL (0.66-1.25) 04/15/18 10:04 Estimated GFR > 60.0 mL/min (>60) 04/15/18 10:04 BUN/Creatinine Ratio 21.3 (6-22) 04/15/18 10:04 Glucose 102 mg/dL (80-110) 04/15/18 10:04 Calcium 9.2 mg/dL (8.4-10.2) 04/15/18 10:04 Total Bilirubin 0.7 mg/dL (0.2-1.3) 04/15/18 10:04 AST 36 IU/L (17-59) 04/15/18 10:04 ALT 36 IU/L (21-72) 04/15/18 10:04 Alkaline Phosphatase 85 U/L (38-126) 04/15/18 10:04 Total Protein 7.7 g/dL (6.3-8.2) 04/15/18 10:04 Albumin 4.0 g/dL (3.5-5.0) 04/15/18 10:04 Globulin 3.7 g/dL (1.7-4.1) 04/15/18 10:04 Albumin/Globulin Ratio 1.1 (1.0-2.8) 04/15/18 10:04 Carcinoembryonic Ag 6.2 ng/mL (0.1-3.0) H 04/09/18 09:47 Home Medications and Allergies Home Medications Medication Instructions Recorded Confirmed Type multivit,Ca,min-iron 8 mg-folic 1 tab PO DAILY tab 03/24/18 04/14/18 History acid 200 mcg-lycopene 600 mcg tablet hydrocodone-homatropine 5 mg-1.5 5 ml PO Q4-6H PRN #473 ml 04/05/18 04/14/18 Rx mg/5 mL syrup amlodipine 5 mg PO DAILY 04/12/18 04/14/18 History aspirin 81 mg PO DAILY 04/12/18 04/14/18 History ondansetron [Zofran ODT] 8 mg PO Q6H PRN 04/12/18 04/12/18 History sennosides-docusate sodium 1 tab PO PRN PRN 04/12/18 04/14/18 History [Senna-S] lidocaine-prilocaine 1 applictn TOP PRN PRN #30 gram 04/14/18 Rx oxycodone-acetaminophen [Percocet] 1 tab PO Q4-6H PRN #30 tab MDD 6 04/14/18 Rx folic acid 1,000 mcg PO DAILY 04/15/18 04/15/18 History Allergies Allergy/AdvReac Type Severity Reaction Status Date / Time No Known Drug Allergies Allergy Verified 03/24/18 11:29 Exam Vital signs: Last Vital Signs Temp 97.9 F 04/15/18 10:39 Pulse 94 H 04/15/18 10:39 Resp 16 04/15/18 10:39 BP 142/83 H 04/15/18 10:39 Pulse Ox 99 04/15/18 10:39 - Constitutional positive mild distress - Routine Respiratory Exam Present: rhonchi - Routine Cardiovascular Exam Present: RRR. Absent: murmur - Routine Abdominal Exam Present: soft. Absent: tenderness - Routine Extremities Exam Present: pulses intact. Absent: cyanosis, edema - Routine Neurological Exam Present: alert
--- NOTE | 2018-04-15 11:06 | P.PNONC_ITS ---
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 For details please refer to my consult note of April 08, 2018. He has had no hazmat cdl driver mutation but the a.m. tissue available was fairly limited given it was a transbronchial FNA of a lymph node of mediastinum. I have sent for a core biopsy of a large palpable tennis ball size mass on the base of neck which was done yesterday. The plan for that would be after confirmation of the malignancy in that sample to be sent for foundation 1-CDX which will cover reliably hazmat cdl driver mutations as well as less common mutations and alterations. When he was seen at [facility] a peripheral blood sample was sent for [id number], and the results became available few days ago, to my opinion inconclusive, non consequential in regard to therapies. CT scan of neck chest abdomen and pelvis was updated on April 09 showing no new areas of metastases and will serve as baseline for future comparison after 2 cycles of chemotherapy. We will proceed with cycle 1 of carboplatin AUC of 5, Alimta 500 milligram/ meters sq and Keytruda at standard dose every 3 weeks. We schedule him to receive G-CSF 480 mcg for 3 days starting Thursday and Thursday and Thursday of next week. We will see him back in 1 week to assess toxicity with labs. Some of his remaining questions and CT scans were reviewed with the patient. He had some leg cramps in the left calf but on exam there is absolutely no swelling or any sign of DVT. If he develops any swelling or migrating pain he should then go to the ER for a Doppler ultrasound but at this point there is no clinical sign. 04/15/18 11:11 - Time Spent with Patient Approximately 45 min were spent in counseling and coordination of care PN -Subjective Interval history: This is a pleasant 67-year-old gentleman, never smoker, whom I saw in initial consult on April 08, 2018 for stage IV poorly differentiated lung adenocarcinoma. For details please refer to my consult note of that date that is reviewed today. Limited tissue was sent for hazmat cdl driver mutations and was negative, however PD L1 expression was high, which is an atypical pattern for a never smoker. He has been developing rapidly worsening cough and massive supraclavicular adenopathy. He had a protracted period of workup due to insurance issues and referral patterns. A his PET scan was done on February 12, 2018 at [facility] and he had a brain MRI that was negative for MAILING JOGGER metastases. The tissue was obtained through a transbronchial FNA by EBUS on February 19, 2018 from a mediastinal lymph node. However he has extensive bilateral supraclavicular adenopathy with plenty of tissue available for molecular studies. Because of the large time elapsed I repeated a CT of neck chest abdomen and pelvis on April 09, 2018 here at [facility] showing no new disease for example no liver metastases or skeletal lesions, however extensive adenopathy in the neck and mediastinum. I had also referred him for a hailey catheter placement urgently as well as a ultrasound-guided core biopsy of the as subclavicular mass which has happened yesterday. He is here to initiate the 1st cycle of chemotherapy with carboplatin, Alimta and Keytruda. - Patient Self-Reported Symptoms SR respiratory issues: Cough, Shortness of breath, Mucous SR Gastrointestinal issues: Poor or no appetite, Constipation SR Musculoskeletal issues: Muscle pain or cramps Results - Labs 04/15/18 10:04 04/15/18 10:04 Laboratory Last Values WBC 8.4 X10^3/uL (4.5-11.0) 04/15/18 10:04 RBC 4.54 X10^6/uL (4.5-5.9) 04/15/18 10:04 Hgb 13.9 g/dL (13.5-17.5) 04/15/18 10:04 Hct 41.6 % (41-53) 04/15/18 10:04 MCV 91.7 fL (80-100) 04/15/18 10:04 MCH 30.6 PG (26-34) 04/15/18 10:04 MCHC 33.4 % (30-36) 04/15/18 10:04 RDW 13.3 % (11.6-14.8) 04/15/18 10:04 Plt Count 328 X10^3/uL (150-400) 04/15/18 10:04 Neut % (Auto) 63.0 % (50-75) 04/15/18 10:04 Lymph % (Auto) 21.5 % (25-40) L 04/15/18 10:04 Crosby % (Auto) 11.2 % (3-14) 04/15/18 10:04 Eos % (Auto) 3.1 % (2-4) 04/15/18 10:04 Baso % (Auto) 1.2 % (0-2) 04/15/18 10:04 Neut # (Auto) 5300 /uL ([id number]) 04/15/18 10:04 PT 12.8 SECONDS (10.1-12.7) H 04/09/18 09:47 INR 1.2 (0.9-1.3) 04/09/18 09:47 APTT 33 SECONDS (26.4-36.2) 04/09/18 09:47 Sodium 141 mmol/L (137-145) 04/15/18 10:04 Potassium 4.5 mmol/L (3.4-5.1) 04/15/18 10:04 Chloride 100 mmol/L (98-107) 04/15/18 10:04 Carbon Dioxide 31 mmol/L (22-32) 04/15/18 10:04 BUN 17 mg/dL (9-20) 04/15/18 10:04 Creatinine 0.80 mg/dL (0.66-1.25) 04/15/18 10:04 Estimated GFR > 60.0 mL/min (>60) 04/15/18 10:04 BUN/Creatinine Ratio 21.3 (6-22) 04/15/18 10:04 Glucose 102 mg/dL (80-110) 04/15/18 10:04 Calcium 9.2 mg/dL (8.4-10.2) 04/15/18 10:04 Total Bilirubin 0.7 mg/dL (0.2-1.3) 04/15/18 10:04 AST 36 IU/L (17-59) 04/15/18 10:04 ALT 36 IU/L (21-72) 04/15/18 10:04 Alkaline Phosphatase 85 U/L (38-126) 04/15/18 10:04 Total Protein 7.7 g/dL (6.3-8.2) 04/15/18 10:04 Albumin 4.0 g/dL (3.5-5.0) 04/15/18 10:04 Globulin 3.7 g/dL (1.7-4.1) 04/15/18 10:04 Albumin/Globulin Ratio 1.1 (1.0-2.8) 04/15/18 10:04 Carcinoembryonic Ag 6.2 ng/mL (0.1-3.0) H 04/09/18 09:47 Home Medications and Allergies Home Medications Medication Instructions Recorded Confirmed Type multivit,Ca,min-iron 8 mg-folic 1 tab PO DAILY tab 03/24/18 04/14/18 History acid 200 mcg-lycopene 600 mcg tablet hydrocodone-homatropine 5 mg-1.5 5 ml PO Q4-6H PRN #473 ml 04/05/18 04/14/18 Rx mg/5 mL syrup amlodipine 5 mg PO DAILY 04/12/18 04/14/18 History aspirin 81 mg PO DAILY 04/12/18 04/14/18 History ondansetron [Zofran ODT] 8 mg PO Q6H PRN 04/12/18 04/12/18 History sennosides-docusate sodium 1 tab PO PRN PRN 04/12/18 04/14/18 History [Senna-S] lidocaine-prilocaine 1 applictn TOP PRN PRN #30 gram 04/14/18 Rx oxycodone-acetaminophen [Percocet] 1 tab PO Q4-6H PRN #30 tab MDD 6 04/14/18 Rx folic acid 1,000 mcg PO DAILY 04/15/18 04/15/18 History Allergies Allergy/AdvReac Type Severity Reaction Status Date / Time No Known Drug Allergies Allergy Verified 03/24/18 11:29 Exam Vital signs: Last Vital Signs Temp 97.9 F 04/15/18 10:39 Pulse 94 H 04/15/18 10:39 Resp 16 04/15/18 10:39 BP 142/83 H 04/15/18 10:39 Pulse Ox 99 04/15/18 10:39 - Constitutional positive mild distress - Routine Respiratory Exam Present: rhonchi - Routine Cardiovascular Exam Present: RRR. Absent: murmur - Routine Abdominal Exam Present: soft. Absent: tenderness - Routine Extremities Exam Present: pulses intact. Absent: cyanosis, edema - Routine Neurological Exam Present: alert
[2018-04-15] MEDS: LORazepam 0.5 MG TABLET PO (11:42)
[2018-04-15] MEDS: SODIUM CHLORIDE 0.9% 100 ML 21 ML IV (11:43)
[2018-04-15] MEDS: DEXAMETHASONE 10 MG/ML VIAL 5 MG IV (11:44)
[2018-04-15] MEDS: FOSAPREPITANT 150 MG in SODIUM CHLORIDE 0.9% 150 ML 300 ML IV (11:57)
[2018-04-15] MEDS: ONDANSETRON 16 MG in SODIUM CHLORIDE 0.9% 50 ML 232 ML IV (12:41)
[2018-04-15] MEDS: PEMBROLIZUMAB 200 MG in SODIUM CHLORIDE 0.9% (CHEMO) 100 ML 216 ML IV (13:12)
[2018-04-15] MEDS: SODIUM CHLORIDE 0.9% IV ×2 (13:58→14:25)
[2018-04-15] MEDS: PEMETREXED IV (13:58)
[2018-04-15] MEDS: CARBOPLATIN IV (14:25)
[2018-04-15] MEDS: CYANOCOBALAMIN 1,000 MCG/ML VIAL 1000 MCG SUBCUT (14:41)
[2018-04-16] MEDS: FILGRASTIM-SNDZ 480 MCG/0.8 ML SYRINGE SUBCUT (14:42)
[2018-04-19] MEDS: FILGRASTIM-SNDZ 480 MCG/0.8 ML SYRINGE SUBCUT (15:06)
[2018-04-19 15:24] VITALS: BP 129/82; PULSE 90; RESP 14; TEMP 36.7; O2SAT 96
[2018-04-20] MEDS: FILGRASTIM-SNDZ 480 MCG/0.8 ML SYRINGE SUBCUT (15:09)
[2018-04-20 15:28] VITALS: BP 108/72; PULSE 82; RESP 16; TEMP 36.8; O2SAT 93
--- NOTE | 2018-04-21 11:16 | ONC.NAV ---
Description: Coordination/Transfer to [facility] ONC Activity: This METAL POURER called patient to discuss the process of transferring him to [facility]. Explained that [facility] would be following up to schedule him for ongoing chemo and provider appointments. Explained that we will be calling him in May, once we have our permanent oncologists on board and Daniel credentialing is complete. He expressed understanding and will look forward to returning back to [facility]. Called [facility] and spoke with Yuki, explained the transfer and that we are faxing over the records. Compiled his ONC medical records and faxed to [facility], attn: Yuki.
[2018-04-22 13:38] LABS: Hematocrit 39.4 % (41-53); Mean Corpuscular HGB Conc 32.9 % (30-36); Mean Corpuscular Hemoglobin 29.9 PG (26-34); Mean Corpuscular Volume 90.8 fL (80-100); Platelet Count 225 X10^3/uL (150-400); Red Blood Cell Count 4.34 X10^6/uL (4.5-5.9); White Blood Cell Count 12.1 X10^3/uL (4.5-11.0)
[2018-04-22 13:46] LABS: Alanine Aminotransferase 40 IU/L (21-72); Albumin 3.9 g/dL (3.5-5.0); Albumin Globulin Ratio 1.1 (1.0-2.8); Alkaline Phosphatase 107 U/L (38-126); Aspartate Aminotransferase 30 IU/L (17-59); BUN Creatinine Ratio 27.1 (6-22); Bilirubin Total 0.3 mg/dL (0.2-1.3); Blood Urea Nitrogen 19 mg/dL (9-20); Carbon Dioxide 29 mmol/L (22-32); Chloride 101 mmol/L (98-107); Estimated Glomerular Filt Rate > 60.0 mL/min (>60); Globulin 3.6 g/dL (1.7-4.1); Glucose 88 mg/dL (80-110); HEMOLYSIS < 15 (0-50); Potassium 4.4 mmol/L (3.4-5.1); Sodium 139 mmol/L (137-145); Total Protein 7.5 g/dL (6.3-8.2)
[2018-04-22 13:51] LABS: Add Manual Diff / Slide Review YES
[2018-04-22 13:52] VITALS: BP 126/69; PULSE 80; RESP 18; TEMP 36.6
[2018-04-22 14:12] LABS: Neutrophils Absolute Manual 9438 /uL (3000-5900); Total Cells Counted 100
[2018-04-22 14:13] LABS: RBC Morphology Normal Morphology
--- NOTE | 2018-04-22 18:42 | ONC.PN ---
Assessment and Plan (1) Malignant neoplasm of right lung stage 4 Current visit: Yes Status: Acute 04/22/18 18:45 67-year-old pleasant gentleman, never smoker with recent diagnosis of stage IV lung adenocarcinoma. For details please refer to my consult note of April 08, 2018 Status post 1st cycle of chemotherapy with carboplatin, Alimta and Keyruda on April 15, 2018 He has had some constitutional toxicity with poor appetite, sense of soreness in his mouth, mild diarrhea, no nausea vomiting. His main issue has been insomnia lately. Lab studies of today show no significant derangements in his blood counts and nor in his kidney or liver function test and he has tolerated the chemotherapy without any major toxicity. The ultrasound-guided core biopsy of the cervical lymph node that I had arranged for on April 14, 2018 was without any pathology report sent to us and after some tracking it was diagnostic for a metastatic carcinoma poorly differentiated of pulmonary origin. It was positive for TTF 1 and napsin a and cytokeratin 7. This should the liver enough tumor material to perform meaningful next generation sequencing and therefore we will send this specimen for [facility], [place] 1-CDX as discussed in my previous notes. His next chemotherapy will be scheduled for May 06, 2018. He prefers to continue his care with me in [place] and I will see him on May 06 to initiate his next round of chemotherapy there. Lorazepam 1 mg at bedtime started for insomnia 04/22/18 18:50 - Time Spent with Patient Approximately 25 min were spent in counseling and coordination of care PN -Subjective Interval history: This is a pleasant 67-year-old gentleman, never smoker, whom I saw in initial consult on April 08, 2018 for stage IV poorly differentiated lung adenocarcinoma. For details please refer to my consult note of that date that is reviewed today. 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 He has been developing rapidly worsening cough and massive supraclavicular adenopathy. He had a protracted period of workup due to insurance issues and referral patterns. A his PET scan was done on February 12, 2018 at [facility] and he had a brain MRI that was negative for BANK VAULT CLERK metastases. The tissue was obtained through a transbronchial FNA by EBUS on February 19, 2018 from a mediastinal lymph node. However he has extensive bilateral supraclavicular adenopathy with plenty of tissue available for molecular studies. Because of the large time elapsed I repeated a CT of neck chest abdomen and pelvis on April 09, 2018 here at [facility] showing no new disease for example no liver metastases or skeletal lesions, however extensive adenopathy in the neck and mediastinum. I had also referred him for a hailey catheter placement urgently as well as a ultrasound-guided core biopsy of the as subclavicular mass which has happened yesterday. S/p 1st cycle of chemotherapy with carboplatin, Alimta and Keytruda on 04/15/18 followed by 3 doses of prophylactic Zarxio. He comes for follow up 1 week post chemo. - Patient Self-Reported Symptoms SR Constitution: Weight loss/gain, Fatigue/Malaise SR respiratory issues: Cough, Shortness of breath, Mucous SR Gastrointestinal issues: Poor or no appetite, Constipation SR Musculoskeletal issues: Muscle pain or cramps Results - Labs 04/22/18 13:25 04/22/18 13:25 Laboratory Last Values WBC 12.1 X10^3/uL (4.5-11.0) H 04/22/18 13:25 RBC 4.34 X10^6/uL (4.5-5.9) L 04/22/18 13:25 Hgb 13.0 g/dL (13.5-17.5) L 04/22/18 13:25 Hct 39.4 % (41-53) L 04/22/18 13:25 MCV 90.8 fL (80-100) 04/22/18 13:25 MCH 29.9 PG (26-34) 04/22/18 13:25 MCHC 32.9 % (30-36) 04/22/18 13:25 RDW 13.0 % (11.6-14.8) 04/22/18 13:25 Plt Count 225 X10^3/uL (150-400) 04/22/18 13:25 Neut % (Auto) Not Reportable 04/22/18 13:25 Lymph % (Auto) Not Reportable 04/22/18 13:25 Donley % (Auto) Not Reportable 04/22/18 13:25 Eos % (Auto) Not Reportable 04/22/18 13:25 Baso % (Auto) Not Reportable 04/22/18 13:25 Neut # (Auto) 5300 /uL ([id number]) 04/15/18 10:04 Total Counted 100 04/22/18 13:25 Seg Neutrophils % 76.0 % (38-70) H 04/22/18 13:25 Band Neutrophils % 2.0 % (3-7) L 04/22/18 13:25 Lymphocytes % (Manual) 15.0 % (25-45) L 04/22/18 13:25 Atypical Lymphs % 1.0 % (-0) H 04/22/18 13:25 Monocytes % (Manual) 6.0 % (2-11) 04/22/18 13:25 Neutrophils # (Manual) 9438 /uL (2664-7486) H 04/22/18 13:25 RBC Morphology Normal morphology 04/22/18 13:25 PT 12.8 SECONDS (10.1-12.7) H 04/09/18 09:47 INR 1.2 (0.9-1.3) 04/09/18 09:47 APTT 33 SECONDS (26.4-36.2) 04/09/18 09:47 Sodium 139 mmol/L (137-145) 04/22/18 13:25 Potassium 4.4 mmol/L (3.4-5.1) 04/22/18 13:25 Chloride 101 mmol/L (98-107) 04/22/18 13:25 Carbon Dioxide 29 mmol/L (22-32) 04/22/18 13:25 BUN 19 mg/dL (9-20) 04/22/18 13:25 Creatinine 0.70 mg/dL (0.66-1.25) 04/22/18 13:25 Estimated GFR > 60.0 mL/min (>60) 04/22/18 13:25 BUN/Creatinine Ratio 27.1 (6-22) H 04/22/18 13:25 Glucose 88 mg/dL (80-110) 04/22/18 13:25 Calcium 9.0 mg/dL (8.4-10.2) 04/22/18 13:25 Total Bilirubin 0.3 mg/dL (0.2-1.3) 04/22/18 13:25 AST 30 IU/L (17-59) 04/22/18 13:25 ALT 40 IU/L (21-72) 04/22/18 13:25 Alkaline Phosphatase 107 U/L (38-126) 04/22/18 13:25 Total Protein 7.5 g/dL (6.3-8.2) 04/22/18 13:25 Albumin 3.9 g/dL (3.5-5.0) 04/22/18 13:25 Globulin 3.6 g/dL (1.7-4.1) 04/22/18 13:25 Albumin/Globulin Ratio 1.1 (1.0-2.8) 04/22/18 13:25 Carcinoembryonic Ag 6.2 ng/mL (0.1-3.0) H 04/09/18 09:47 Home Medications and Allergies Home Medications Medication Instructions Recorded Confirmed Type multivit,Ca,min-iron 8 mg-folic 1 tab PO DAILY tab 03/24/18 04/14/18 History acid 200 mcg-lycopene 600 mcg tablet hydrocodone-homatropine 5 mg-1.5 5 ml PO Q4-6H PRN #473 ml 04/05/18 04/14/18 Rx mg/5 mL syrup amlodipine 5 mg PO DAILY 04/12/18 04/14/18 History aspirin 81 mg PO DAILY 04/12/18 04/14/18 History ondansetron [Zofran ODT] 8 mg PO Q6H PRN 04/12/18 04/12/18 History sennosides-docusate sodium 1 tab PO PRN PRN 04/12/18 04/14/18 History [Senna-S] lidocaine-prilocaine 1 applictn TOP PRN PRN #30 gram 04/14/18 Rx oxycodone-acetaminophen [Percocet] 1 tab PO Q4-6H PRN #30 tab MDD 6 04/14/18 Rx folic acid 1,000 mcg PO DAILY 04/15/18 04/15/18 History loratadine [Claritin] 10 mg PO DAILY PRN 04/22/18 04/22/18 History lorazepam 1 mg PO BEDTIME PRN #30 tab 04/22/18 Rx Allergies Allergy/AdvReac Type Severity Reaction Status Date / Time No Known Drug Allergies Allergy Verified 03/24/18 11:29 Exam Vital signs: Last Vital Signs Temp 97.9 F 04/22/18 13:52 Pulse 80 04/22/18 13:52 Resp 18 04/22/18 13:52 BP 126/69 H 04/22/18 13:52 Pulse Ox 93 04/20/18 15:28 - Constitutional positive no acute distress - Routine Neck Exam Present: lymphadenopathy Comments: Bilateral neck base masses already slightly smaller. - Routine Respiratory Exam Present: Clear to auscultation bilaterally - Routine Cardiovascular Exam Present: RRR, murmur - Routine Abdominal Exam Present: soft - Routine Extremities Exam Absent: edema
--- NOTE | 2018-04-22 18:51 | P.PNONC_ITS ---
Assessment and Plan (1) Malignant neoplasm of right lung stage 4 Current visit: Yes Status: Acute 04/22/18 18:45 67-year-old pleasant gentleman, never smoker with recent diagnosis of stage IV lung adenocarcinoma. For details please refer to my consult note of April 08, 2018 Status post 1st cycle of chemotherapy with carboplatin, Alimta and Keyruda on April 15, 2018 He has had some constitutional toxicity with poor appetite, sense of soreness in his mouth, mild diarrhea, no nausea vomiting. His main issue has been insomnia lately. Lab studies of today show no significant derangements in his blood counts and nor in his kidney or liver function test and he has tolerated the chemotherapy without any major toxicity. The ultrasound-guided core biopsy of the cervical lymph node that I had arranged for on April 14, 2018 was without any pathology report sent to us and after some tracking it was diagnostic for a metastatic carcinoma poorly differentiated of pulmonary origin. It was positive for TTF 1 and napsin a and cytokeratin 7. This should the liver enough tumor material to perform meaningful next generation sequencing and therefore we will send this specimen for [facility], [place] 1- CDX as discussed in my previous notes. His next chemotherapy will be scheduled for May 06, 2018. He prefers to continue his care with me in [place] and I will see him on May 06 to initiate his next round of chemotherapy there. Lorazepam 1 mg at bedtime started for insomnia 04/22/18 18:50 - Time Spent with Patient Approximately 25 min were spent in counseling and coordination of care PN -Subjective Interval history: This is a pleasant 67-year-old gentleman, never smoker, whom I saw in initial consult on April 08, 2018 for stage IV poorly differentiated lung adenocarcinoma. For details please refer to my consult note of that date that is reviewed today. 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 He has been developing rapidly worsening cough and massive supraclavicular adenopathy. He had a protracted period of workup due to insurance issues and referral patterns. A his PET scan was done on February 12, 2018 at [facility] and he had a brain MRI that was negative for LIGHTING DIRECTOR metastases. The tissue was obtained through a transbronchial FNA by EBUS on February 19, 2018 from a mediastinal lymph node. However he has extensive bilateral supraclavicular adenopathy with plenty of tissue available for molecular studies. Because of the large time elapsed I repeated a CT of neck chest abdomen and pelvis on April 09, 2018 here at [facility] showing no new disease for example no liver metastases or skeletal lesions, however extensive adenopathy in the neck and mediastinum. I had also referred him for a hailey catheter placement urgently as well as a ultrasound-guided core biopsy of the as subclavicular mass which has happened yesterday. S/p 1st cycle of chemotherapy with carboplatin, Alimta and Keytruda on 04/15/18 followed by 3 doses of prophylactic Zarxio. He comes for follow up 1 week post chemo. - Patient Self-Reported Symptoms SR Constitution: Weight loss/gain, Fatigue/Malaise SR respiratory issues: Cough, Shortness of breath, Mucous SR Gastrointestinal issues: Poor or no appetite, Constipation SR Musculoskeletal issues: Muscle pain or cramps Results - Labs 04/22/18 13:25 04/22/18 13:25 Laboratory Last Values WBC 12.1 X10^3/uL (4.5-11.0) H 04/22/18 13:25 RBC 4.34 X10^6/uL (4.5-5.9) L 04/22/18 13:25 Hgb 13.0 g/dL (13.5-17.5) L 04/22/18 13:25 Hct 39.4 % (41-53) L 04/22/18 13:25 MCV 90.8 fL (80-100) 04/22/18 13:25 MCH 29.9 PG (26-34) 04/22/18 13:25 MCHC 32.9 % (30-36) 04/22/18 13:25 RDW 13.0 % (11.6-14.8) 04/22/18 13:25 Plt Count 225 X10^3/uL (150-400) 04/22/18 13:25 Neut % (Auto) Not Reportable 04/22/18 13:25 Lymph % (Auto) Not Reportable 04/22/18 13:25 Cameron % (Auto) Not Reportable 04/22/18 13:25 Eos % (Auto) Not Reportable 04/22/18 13:25 Baso % (Auto) Not Reportable 04/22/18 13:25 Neut # (Auto) 5300 /uL ([id number]) 04/15/18 10:04 Total Counted 100 04/22/18 13:25 Seg Neutrophils % 76.0 % (38-70) H 04/22/18 13:25 Band Neutrophils % 2.0 % (3-7) L 04/22/18 13:25 Lymphocytes % (Manual) 15.0 % (25-45) L 04/22/18 13:25 Atypical Lymphs % 1.0 % (-0) H 04/22/18 13:25 Monocytes % (Manual) 6.0 % (2-11) 04/22/18 13:25 Neutrophils # (Manual) 9438 /uL ([id number]) H 04/22/18 13:25 RBC Morphology Normal morphology 04/22/18 13:25 PT 12.8 SECONDS (10.1-12.7) H 04/09/18 09:47 INR 1.2 (0.9-1.3) 04/09/18 09:47 APTT 33 SECONDS (26.4-36.2) 04/09/18 09:47 Sodium 139 mmol/L (137-145) 04/22/18 13:25 Potassium 4.4 mmol/L (3.4-5.1) 04/22/18 13:25 Chloride 101 mmol/L (98-107) 04/22/18 13:25 Carbon Dioxide 29 mmol/L (22-32) 04/22/18 13:25 BUN 19 mg/dL (9-20) 04/22/18 13:25 Creatinine 0.70 mg/dL (0.66-1.25) 04/22/18 13:25 Estimated GFR > 60.0 mL/min (>60) 04/22/18 13:25 BUN/Creatinine Ratio 27.1 (6-22) H 04/22/18 13:25 Glucose 88 mg/dL (80-110) 04/22/18 13:25 Calcium 9.0 mg/dL (8.4-10.2) 04/22/18 13:25 Total Bilirubin 0.3 mg/dL (0.2-1.3) 04/22/18 13:25 AST 30 IU/L (17-59) 04/22/18 13:25 ALT 40 IU/L (21-72) 04/22/18 13:25 Alkaline Phosphatase 107 U/L (38-126) 04/22/18 13:25 Total Protein 7.5 g/dL (6.3-8.2) 04/22/18 13:25 Albumin 3.9 g/dL (3.5-5.0) 04/22/18 13:25 Globulin 3.6 g/dL (1.7-4.1) 04/22/18 13:25 Albumin/Globulin Ratio 1.1 (1.0-2.8) 04/22/18 13:25 Carcinoembryonic Ag 6.2 ng/mL (0.1-3.0) H 04/09/18 09:47 Home Medications and Allergies Home Medications Medication Instructions Recorded Confirmed Type multivit,Ca,min-iron 8 mg-folic 1 tab PO DAILY tab 03/24/18 04/14/18 History acid 200 mcg-lycopene 600 mcg tablet hydrocodone-homatropine 5 mg-1.5 5 ml PO Q4-6H PRN #473 ml 04/05/18 04/14/18 Rx mg/5 mL syrup amlodipine 5 mg PO DAILY 04/12/18 04/14/18 History aspirin 81 mg PO DAILY 04/12/18 04/14/18 History ondansetron [Zofran ODT] 8 mg PO Q6H PRN 04/12/18 04/12/18 History sennosides-docusate sodium 1 tab PO PRN PRN 04/12/18 04/14/18 History [Senna-S] lidocaine-prilocaine 1 applictn TOP PRN PRN #30 gram 04/14/18 Rx oxycodone-acetaminophen [Percocet] 1 tab PO Q4-6H PRN #30 tab MDD 6 04/14/18 Rx folic acid 1,000 mcg PO DAILY 04/15/18 04/15/18 History loratadine [Claritin] 10 mg PO DAILY PRN 04/22/18 04/22/18 History lorazepam 1 mg PO BEDTIME PRN #30 tab 04/22/18 Rx Allergies Allergy/AdvReac Type Severity Reaction Status Date / Time No Known Drug Allergies Allergy Verified 03/24/18 11:29 Exam Vital signs: Last Vital Signs Temp 97.9 F 04/22/18 13:52 Pulse 80 04/22/18 13:52 Resp 18 04/22/18 13:52 BP 126/69 H 04/22/18 13:52 Pulse Ox 93 04/20/18 15:28 - Constitutional positive no acute distress - Routine Neck Exam Present: lymphadenopathy Comments: Bilateral neck base masses already slightly smaller. - Routine Respiratory Exam Present: Clear to auscultation bilaterally - Routine Cardiovascular Exam Present: RRR, murmur - Routine Abdominal Exam Present: soft - Routine Extremities Exam Absent: edema
--- NOTE | 2018-06-23 10:20 | ONC.NAV ---
Description: T/C: Care Coordination Activity: Called pt to clarify where he has been getting his chemo/oncology treatment, as we were notified yesterday that he had never been scheduled with [facility] (records were faxed to them 04/22/18). Requested a return call to assist with further assistance with care coordination.
== END ==
PROVIDERS: PCP Family Medicine; Visit Provider Internal Medicine Hematology & Oncology
DX: C34.90 Malignant neoplasm of unspecified part of unspecified bronchus or lung (principal)
CPT/HCPCS: 36592; 80053; 82378; 85025; 85610; 85730; 96367; 96372; 96375; 96411; 96413; 96417; 99205; 99214; 99215; J1100; J1453; J2405; J3420; J9045; J9271; J9305; Q5101

== ENCOUNTER → 2018-06-14 08:32 | Outpatient (CLI) | payer OTHER, SELFPAY ==
--- NOTE | 2018-06-14 | DI.CT.S_ITS ---
PROCEDURE: CT CHEST ABD PEL W CON INDICATIONS: LUNG CANCER TECHNIQUE: After the administration of oral and intravenous contrast, 5 mm thick sections acquired from the lung apices to the symphysis. 5 mm coronal and sagittal reformats were performed, with additional 7 mm coronal MIP reformats through the lungs. For radiation dose reduction, the following was used: automated exposure control, adjustment of mA and/or kV according to patient size. COMPARISON: [facility], CT, CT SOFT TISSUE NECK W CON, 06/14/2018, 9:16. [facility], CT, CT CHEST ABD PEL W CON, 04/09/2018, 12:13. [facility], CT, CT ANGIO CHEST PE PROTOCOL, 03/22/2018, 16:18. [facility], NM, PET NECK TO MID THIGH, 02/12/2018, 17:13. [facility], CT, THORAX WITH CONTRAST, 01/22/2018, 8:59. [facility], CT, ABDOMEN/PELVIS WITH CONTRAST, 01/12/2018, 13:35. FINDINGS: Image quality: Excellent. CHEST: Lungs and pleura: Right perihilar consolidation is almost completely resolved in interval since prior exam obtained 04/09/18. No new lung consolidation. New 5 mm nodule noted in the right lower lobe (series 7, image 45. New 6 mm interstitial nodule noted in the right lower lobe (series 7, image 46. New 3 mm subpleural nodule noted in the right lower lobe (series 7, image 49). Subsegmental atelectasis noted in the dependent portions of lungs bilaterally. Bibasilar pulmonary cysts are noted which are stable compared to prior examination. No acute airspace opacities. No pleural effusions or pneumothorax. Central and peripheral airways appear patent and normal in caliber. Mediastinum: Heart size is normal. Trace pericardial fluid noted. No mediastinal or hilar adenopathy by size criteria. Thoracic aorta and central pulmonary arteries are normal in size. Atherosclerotic calcifications are noted in the aorta. Esophagus is normal in caliber. No hiatal hernia. Chest wall: Right chest Port-A-Cath is in place minimal since prior exam obtained 04/09/2018. No axillary or supraclavicular adenopathy by size criteria. Bulky supraclavicular lymphadenopathy identified by prior examinations obtained 04/09/2018 has resolved with no pathologic sized lymph nodes identified in the current study.. Thyroid gland is within normal limits. ABDOMEN: Solid organs: Liver is normal in size. Numerous hepatic cysts are stable compared to prior examination. 2 cm hemangioma involving the posterior-superior subsegment of the right lobe liver is stable compared to prior examinations. Gallbladder is within normal limits. Biliary system is non dilated. Pancreas enhances normally. Spleen is normal in size and enhancement. No adrenal nodules. Kidneys demonstrate normal size and enhancement, without hydronephrosis. Peritoneum and bowel: Bowel loops demonstrate normal wall thickness and caliber. Scattered colonic diverticuli without evidence of diverticulitis. No free fluid or air. Nodes and vessels: No retroperitoneal or mesenteric adenopathy by size criteria. Aorta and inferior vena cava are normal in size. Scattered atherosclerotic calcifications involving the abdominal and pelvic vasculature. Miscellaneous: Small fat-containing umbilical hernia. PELVIS: Genitourinary: Bladder wall thickness is normal. Prostate is mildly enlarged. Miscellaneous: No inguinal adenopathy. Small bilateral fat containing inguinal hernias. Bones: No suspicious bony lesions. Pubic symphysis chondrocalcinosis stable compared to prior exams. No vertebral body compression fractures. Spine degenerative disc disease and facet arthropathy. IMPRESSION: 1. Interval resolution of bilateral supraclavicular, bilateral hilar and mediastinal lymphadenopathy consistent with response to therapy. No lymphadenopathy based on size criteria identified in the chest, abdomen or pelvis. 2. Right perihilar lung consolidation demonstrates near-complete resolution in the interval since prior exam obtained 04/09/2018. 3. New, subcentimeter, pulmonary nodules involving the right lower lobe. Recommend short term follow up CT scan of the chest in 3 months. 4. 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 5. Colonic diverticulosis without evidence of diverticulitis. Dictated by: Alberta Curry MD, PhD on 06/14/2018 at 11:52 Approved by: Alberta Curry MD, PhD on 06/14/2018 at 12:33
--- NOTE | 2018-06-14 09:50 | DI.CT.S_ITS ---
PROCEDURE: CT SOFT TISSUE NECK W CON INDICATIONS: restaging cancer TECHNIQUE: After the administration of intravenous contrast, 3.0 mm axial sections acquired from the sella to the aortic arch. Additional oblique axial 3.0 mm sections acquired through the pharynx. 3 mm thick coronal and sagittal reformats were generated. For radiation dose reduction, the following was used: automated exposure control. COMPARISON: [facility], CT, CT CHEST ABD PEL W CON, 06/14/2018, 9:16. [facility], CT, SOFT TISSUE NECK W CONTRAST, 10/02/2016, 12:15. [facility], MR, MR HEAD/BRAIN WO/W CON, 03/29/2018, 16:23. [facility], CT, HEAD WITHOUT CONTRAST, 06/20/2016, 21:40. [facility], CT, CT SOFT TISSUE NECK W CON, 04/09/2018, 12:13. FINDINGS: Image quality: Excellent. Lymph nodes: No enlarged lymph nodes seen throughout the neck. The previously seen enlarged bilateral supraclavicular nodes are no longer seen. Vessels: Visualized vasculature appears patent. Neck spaces: The oropharynx, nasopharynx, and pharynx demonstrate no mucosal lesions. The vocal cords, false vocal cords, pyriform sinuses, epiglottis, vallecula, and tongue base all appear normal. Extramucosal spaces appear unremarkable. Glands: The parotid and submandibular glands appear normal. Thyroid gland demonstrates no significant CT abnormality. Miscellaneous: Visualized brain and orbits appear normal. Mild emphysematous changes can be seen at the lung apices. Superficial soft tissues appear normal. Bones: No suspicious bony lesions. Age-appropriate bony degenerative changes are seen. Visualized sinuses and mastoids appear unremarkable. IMPRESSION: No enlarged lymph nodes are now seen. Dictated by: Gualberto Michel M.D. on 06/14/2018 at 9:38 Approved by: Gualberto Michel M.D. on 06/14/2018 at 9:43
--- NOTE | 2018-06-29 10:07 | ONC.NAV ---
Description: Financial Assistance Activity: Completed a check for $30.00 from the [employer] to pay for a self-administration medication fee that patient is disputing. Will send pt a receipt of the payment to [facility] for account#[id number].
== END ==
PROVIDERS: PCP Family Medicine; Visit Provider Internal Medicine Hematology & Oncology
DX: C34.90 Malignant neoplasm of unspecified part of unspecified bronchus or lung (principal); I10 Essential (primary) hypertension; K57.90 Diverticulosis of intestine, part unspecified, without perforation or abscess without bleeding
CPT/HCPCS: 70491; 71260; 74177; Q9967

== ENCOUNTER → 2018-09-06 13:00 | Outpatient (CLI) | payer OTHER, SELFPAY ==
[2018-09-06 13:23] LABS: Add Manual Diff / Slide Review NO; Basophils Percent Auto 0.8 % (0-2); Eosinophils Percent Auto 1.1 % (2-4); Hematocrit 41.1 % (41-53); Hemoglobin 13.9 g/dL (13.5-17.5); Lymphocytes Percent Auto 27.4 % (25-40); Mean Corpuscular HGB Conc 33.9 % (30-36); Mean Corpuscular Volume 103.3 fL (80-100); Monocytes Percent Auto 11.7 % (3-14); Neutrophils Absolute Auto 4700 /uL (3000-5900); Platelet Count 287 X10^3/uL (150-400); Red Blood Cell Count 3.97 X10^6/uL (4.5-5.9); Red Cell Distribution Width 13.7 % (11.6-14.8)
[2018-09-06 13:40] LABS: Alanine Aminotransferase 49 IU/L (21-72); Albumin 4.5 g/dL (3.5-5.0); Albumin Globulin Ratio 1.2 (1.0-2.8); Alkaline Phosphatase 83 U/L (38-126); Aspartate Aminotransferase 50 IU/L (17-59); Bilirubin Total 0.3 mg/dL (0.2-1.3); Blood Urea Nitrogen 21 mg/dL (9-20); Calcium 9.3 mg/dL (8.4-10.2); Carbon Dioxide 31 mmol/L (22-32); Chloride 102 mmol/L (98-107); Estimated Glomerular Filt Rate > 60.0 mL/min (>60); Globulin 3.8 g/dL (1.7-4.1); Glucose 93 mg/dL (80-110); HEMOLYSIS < 15 (0-50); Potassium 4.4 mmol/L (3.4-5.1); Sodium 144 mmol/L (137-145); Total Protein 8.3 g/dL (6.3-8.2)
--- NOTE | 2018-09-06 13:57 | DI.CT.S_ITS ---
PROCEDURE: CT CHEST ABD PEL W CON INDICATIONS: LUNG CANCER TECHNIQUE: After the administration of oral and intravenous contrast, 5 mm thick sections acquired from the lung apices to the symphysis. 5 mm coronal and sagittal reformats were performed, with additional 7 mm coronal MIP reformats through the lungs. For radiation dose reduction, the following was used: automated exposure control, adjustment of mA and/or kV according to patient size. COMPARISON: [facility], CT, CT CHEST ABD PEL W CON, 04/09/2018, 12:13. [facility], CT, CT SOFT TISSUE NECK W CON, 04/09/2018, 12:13. [facility], MR, MR HEAD/BRAIN WO/W CON, 03/29/2018, 16:23. [facility], CT, CT ANGIO CHEST PE PROTOCOL, 03/22/2018, 16:18. Outside Film, NM, PET NECK TO MID THIGH, 02/12/2018, 17:13. [facility], CT, THORAX WITH CONTRAST, 01/22/2018, 8:59. [facility], CT, ABDOMEN/PELVIS WITH CONTRAST, 01/12/2018, 13:35. [facility], CT, CT CHEST ABD PEL W CON, 06/14/2018, 9:16. FINDINGS: Image quality: Excellent. CHEST: Lungs and pleura: No acute consolidation. Scattered blebs and bulla versus pulmonary cysts are again noted. This raises the possibility of lymphocytic interstitial pneumonia as before. Previous described subcentimeter nodularity seen in the right lung base has resolved since 06/14/18 therefore presumably infectious or inflammatory in nature. There is scattered atelectasis/scarring as before. Central airways appear grossly patent. No pleural effusions or pneumothorax. Central and peripheral airways appear patent and normal in caliber. Mediastinum: Heart size is enlarged. Mild pericardial effusion. No mediastinal or hilar adenopathy by size criteria. Thoracic aorta and central pulmonary arteries are normal in size. Esophagus is normal in caliber. No hiatal hernia. Chest wall: No axillary or supraclavicular adenopathy by size criteria. Thyroid gland grossly unremarkable. ABDOMEN: Solid organs: There are presumed innumerable small hepatic cyst. 2 cm hemangioma involving the right hepatic lobe at the dome, image 50 series 2 is unchanged.. Gallbladder partially collapsed otherwise unremarkable. Biliary system is non dilated. Pancreas enhances normally. Spleen is normal in size and enhancement. No adrenal nodules. Kidneys demonstrate normal size and enhancement, without hydronephrosis. Peritoneum and bowel: Bowel loops demonstrate normal wall thickness and caliber. No free fluid or air. The appendix is within normal limits Colonic diverticulosis is seen without evidence of acute complication. Rectum is grossly unremarkable Nodes and vessels: No retroperitoneal or mesenteric adenopathy by size criteria. Aorta and inferior vena cava are normal in size. Miscellaneous: No ventral hernias. PELVIS: Genitourinary: Bladder wall thickness is normal. Miscellaneous: Small bilateral fat-containing inguinal hernias. No pelvic adenopathy. Bones: No suspicious bony lesions. Diffuse osteopenia and scattered discogenic changes. No vertebral body compression fractures. IMPRESSION: Overall, no specific evidence of active metastatic disease. No pathologically enlarged lymphadenopathy identified. Interval resolution of right basilar pulmonary nodule since 06/14/18 in keeping with inflammatory/inflammatory nature. Colonic diverticulosis as before. Chronic and incidental findings as above. Dictated by: Teto Marx M.D. on 09/06/2018 at 14:56 Approved by: Teto Marx M.D. on 09/06/2018 at 15:06
[2018-09-06 14:33] LABS: Cholesterol 237 mg/dL (140-199); HDL Cholesterol 37 mg/dL (40-60); LDL Cholesterol Calculated 155 mg/dL (<100); Triglycerides 225 mg/dL (35-150)
[2018-09-06 15:02] LABS: Prostate Specific Antigen Scrn 0.884 ng/mL (0.1-4.0)
[2018-09-06 16:11] LABS: Thyroid Stimulating Hormone 4.96 uIU/mL (0.47-4.68)
== END ==
PROVIDERS: PCP Family Medicine; Visit Provider Internal Medicine Hematology & Oncology
DX: C34.90 Malignant neoplasm of unspecified part of unspecified bronchus or lung (principal); G45.9 Transient cerebral ischemic attack, unspecified; I10 Essential (primary) hypertension; Z12.5 Encounter for screening for malignant neoplasm of prostate; K57.90 Diverticulosis of intestine, part unspecified, without perforation or abscess without bleeding; K40.20 Bilateral inguinal hernia, without obstruction or gangrene, not specified as recurrent; M85.80 Other specified disorders of bone density and structure, unspecified site
CPT/HCPCS: 36415; 71260; 74177; 80053; 80061; 84443; 85025; G0103; Q9967

== ENCOUNTER → 2019-07-25 07:05 | Outpatient (CLI) | payer MEDICARE, SELFPAY ==
[2019-07-25 08:56] LABS: Add Manual Diff / Slide Review NO; Basophils Absolute Auto 0 /uL (0-100); Basophils Percent Auto 0.4 % (0-2); Eosinophils Absolute Auto 200 /uL (0-450); Eosinophils Percent Auto 3.3 % (2-4); Hematocrit 45.9 % (41-53); Hemoglobin 15.7 g/dL (13.5-17.5); Lymphocytes Absolute Auto 3100 /uL (1100-4500); Lymphocytes Percent Auto 40.5 % (25-40); Mean Corpuscular HGB Conc 34.3 % (30-36); Mean Corpuscular Volume 96.2 fL (80-100); Monocytes Absolute Auto 700 /uL (0-900); Monocytes Percent Auto 8.8 % (3-14); Neutrophils Absolute Auto 3600 /uL (1500-7000); Platelet Count 234 X10^3/uL (150-400); Red Blood Cell Count 4.77 X10^6/uL (4.5-5.9); Red Cell Distribution Width 13.3 % (11.6-14.8); White Blood Cell Count 7.6 X10^3/uL (4.5-11.0)
[2019-07-25 09:02] LABS: Cholesterol 230 mg/dL (140-199); HDL Cholesterol 28 mg/dL (40-60); LDL Cholesterol Calculated 151 mg/dL (<100); Triglycerides 257 mg/dL (35-150)
[2019-07-25 09:31] LABS: Prostate Specific Antigen Scrn 1.92 ng/mL (0.1-4.0)
[2019-07-25 09:44] LABS: T4 Total Thyroxine 7.85 ug/dL (5.5-11.0)
[2019-07-25 09:58] LABS: Thyroid Stimulating Hormone 4.67 uIU/mL (0.47-4.68)
[2019-07-27 15:03] LABS: Triiodothyronine T3 Total 96 ng/dL (76-181)
== END ==
PROVIDERS: PCP Family Medicine; Visit Provider Family Medicine
DX: R79.89 Other specified abnormal findings of blood chemistry (principal); Z12.5 Encounter for screening for malignant neoplasm of prostate; E78.2 Mixed hyperlipidemia; I10 Essential (primary) hypertension
CPT/HCPCS: 36415; 80061; 84436; 84443; 84480; 85025; G0103

== ENCOUNTER → 2020-06-08 08:48 | Outpatient (CLI) | payer MEDICARE, SELFPAY ==
[2020-06-12 05:39] LABS: COVID19 Sendout Not Detected (Not Detected)
== END ==
PROVIDERS: PCP Family Medicine; Visit Provider Physician Assistant
DX: Z11.59 Encounter for screening for other viral diseases (principal); J02.9 Acute pharyngitis, unspecified
CPT/HCPCS: 87070; 87635

== ENCOUNTER → 2020-08-14 07:24 | Outpatient (CLI) | payer MEDICARE, SELFPAY ==
[2020-08-14 09:13] LABS: Cholesterol 222 mg/dL (140-199); HDL Cholesterol 37 mg/dL (40-60); LDL Cholesterol Calculated 163 mg/dL (<100); Triglycerides 112 mg/dL (35-150)
[2020-08-14 09:45] LABS: Thyroid Stimulating Hormone 2.82 uIU/mL (0.47-4.68)
[2020-08-14 09:47] LABS: Prostate Specific Antigen Scrn 1.87 ng/mL (0.1-4.0)
== END ==
PROVIDERS: PCP Family Medicine; Referring Provider Family Medicine; Visit Provider Family Medicine
DX: E78.2 Mixed hyperlipidemia (principal); Z12.5 Encounter for screening for malignant neoplasm of prostate
CPT/HCPCS: 36415; 80061; 84443; G0103

== ENCOUNTER → 2021-08-22 07:32 | Outpatient (CLI) | payer MEDICARE, SELFPAY ==
[2021-08-22 10:47] LABS: Alanine Aminotransferase 21 IU/L (<50); Albumin 4.3 g/dL (3.5-5.0); Albumin Globulin Ratio 1.4 (1.0-2.8); Alkaline Phosphatase 60 U/L (38-126); Aspartate Aminotransferase 29 IU/L (17-59); BUN Creatinine Ratio 18.8 (6-22); Bilirubin Total 0.5 mg/dL (0.2-1.3); Blood Urea Nitrogen 18 mg/dL (9-20); Calcium 9.7 mg/dL (8.4-10.2); Carbon Dioxide 32 mmol/L (22-32); Chloride 101 mmol/L (98-107); Cholesterol 214 mg/dL (140-199); Estimated Glomerular Filt Rate > 60.0 mL/min (>60); Glucose 96 mg/dL (80-110); HDL Cholesterol 37 mg/dL (40-60); HEMOLYSIS < 15 (0-50); LDL Cholesterol Calculated 146 mg/dL (<100); Potassium 4.9 mmol/L (3.4-5.1); Sodium 141 mmol/L (137-145); Total Protein 7.3 g/dL (6.3-8.2); Triglycerides 155 mg/dL (35-150)
[2021-08-22 11:19] LABS: Prostate Specific Antigen Scrn 3.52 ng/mL (0.1-4.0)
== END ==
PROVIDERS: PCP Internal Medicine; Referring Provider Internal Medicine; Visit Provider Internal Medicine
DX: E78.2 Mixed hyperlipidemia (principal); Z12.5 Encounter for screening for malignant neoplasm of prostate; I10 Essential (primary) hypertension
CPT/HCPCS: 36415; 80053; 80061; G0103

== ENCOUNTER → 2022-08-19 06:59 | Outpatient (CLI) | payer MEDICARE, SELFPAY ==
[2022-08-19 08:09] LABS: Cholesterol 228 mg/dL (140-199); HDL Cholesterol 34 mg/dL (40-60); LDL Cholesterol Calculated 166 mg/dL (<100); Triglycerides 138 mg/dL (35-150)
== END ==
PROVIDERS: PCP Internal Medicine; Referring Provider Internal Medicine; Visit Provider Internal Medicine
DX: I10 Essential (primary) hypertension (principal); E78.2 Mixed hyperlipidemia
CPT/HCPCS: 36415; 80061

== ENCOUNTER 2024-08-04 09:14 | Emergency (ER) | payer MEDICARE, SELFPAY ==
--- NOTE | 2024-08-04 09:31 | ED_ITS ---
HPI - General Adult General Chief complaint: Extremity Injury, Upper Stated complaint: extreme muscle pain Time Seen by Provider: 08/04/24 09:23 History of Present Illness HPI narrative: 74-year-old male with right wrist pain, regularly quite active, no specific injury recalled, had just been hiking [place] 2 weeks ago, no falls recalled, more recently had been moving lumbar, no specific blunt injury or extension flexion injury to the wrist recalled, he did have discomfort after moving lumbar chest and right upper extremity and left upper extremity, has persisting left wrist pain, worse with movement, no fevers or chills. No history of procedures or injections to that wrist. No history of arthritis problems known. Related Data Home Medications Medication Instructions Recorded Confirmed multivit,Ca,min-iron 8 mg-folic 1 tab PO DAILY 03/24/18 08/04/24 acid 200 mcg-lycopene 600 mcg tablet (Centrum Men) Allergies Allergy/AdvReac Type Severity Reaction Status Date / Time No Known Drug Allergies Allergy Verified 07/02/23 13:25 Review of Systems Review of Systems Narrative: see HPI Patient History Medical History Abnormal chest xray (~2009) Chicken pox (~1953) Chronic cough Colitis (~2019) Diverticular disease of colon (~2017) Essential hypertension GERD (gastroesophageal reflux disease) History of adenomatous polyp of colon (~2017) Inflammatory bowel disease Malignant neoplasm of right lung stage 4 (~12/2017) Measles Metastatic lung cancer (metastasis from lung to other site) Mixed hyperlipidemia TIA (transient ischemic attack) Social History household members: spouse Smoking Status: Never smoker Smoking Status: Never smoker alcohol intake frequency: 0-2 drinks per day Substance Use Type: does not use Exam Narrative Exam Narrative: GENERAL: Well-developed patient, in mild distress. HEAD: Atraumatic. Normocephalic. EYES: Pupils equal round and reactive. Extraocular motions intact. No scleral icterus. No injection or drainage. ENT: Nose without bleeding, purulent drainage. Throat without erythema, tonsillar hypertrophy or exudate. Airway patent. NECK: Trachea midline. Non tender CARDIOVASCULAR: Regular rate and rhythm without murmurs, gallops, or rubs. RESPIRATORY: Clear to auscultation. Breath sounds equal bilaterally. No wheezes, rales, or rhonchi. GASTROINTESTINAL: Abdomen soft, non-tender, nondistended. EXTREMITIES: Tenderness with no gross deformity to the left wrist, not particularly warm, no skin changes. Able to flex and extend fingers, can make fist well, can fully extended MCP and IP joints. Normal range of motion at right elbow and shoulder. Right upper extremity unremarkable. BACK: Nontender without deformity or crepitance. No flank tenderness. NEURO: AOx3. Motor functions grossly nonfocal SKIN: No rash or erythema of visible areas Initial Vital Signs Initial Vital Signs: Vital Signs Temperature 98.2 F 08/04/24 09:40 Pulse Rate 83 08/04/24 09:40 Respiratory Rate 16 08/04/24 09:40 Blood Pressure 153/91 H 08/04/24 09:40 Pulse Oximetry 95 08/04/24 09:40 Oxygen Delivery Method Room Air 08/04/24 09:40 Course Orders Ordered: Discontinued Medications Ibuprofen (Ibuprofen 400 Mg Tablet) 400 mg PO NOW ONE Stop: 08/04/24 09:58 Last Admin: 08/04/24 10:26 Dose: 400 mg Documented By: LITTLE Vital Signs Vital signs: Vital Signs - 8 hr 08/04/24 09:40 Temperature 98.2 F Pulse Rate 83 Respiratory Rate 16 Blood Pressure 153/91 H Pulse Oximetry 95 Oxygen Delivery Method Room Air Medical Decision Making [facility] Narrative Medical decision making narrative: Left wrist pain persisting after recent lumbar moving activities, right upper extremity and chest discomfort had resolved, persisting left wrist pain, worse with movement. Tenderness on exam, no fever. Doubt septic joint. Suspect wrist strain and/or overuse by history and examination. Left wrist x-ray ordered from triage, results pending. Oral dose ibuprofen, declined injectable medications. XRay wrist shows no acute changes, see radiology report Left wrist splint Velcro Discharge Plan Departure Patient Disposition: Home Clinical Impression: Left wrist pain Instructions: DI for Wrist Sprain Activity Restrictions/Additional Instructions: Left wrist predominant pain, recent moving of lumbar, no blunt trauma known, you did have some discomfort in the right upper extremity and also the chest after moving in the lumbar, this symptoms have resolved but you had persistence in left wrist area discomfort. Examination history not consistent with blood clots. No fever noted. No rashes or skin changes. X-rays done without obvious fracture or bony lesions. We will strain given recent moving a lumbar, versus some other soft tissue problem at this time suspected. Trial for now of [id number] ibuprofen and/or Tylenol, Velcro wrist splinting, elevation, icing. Recheck with your regular doctor if symptoms not improved in the next few days. Return to this/nearest emergency department for any change worsening symptoms or any concerns prior Prescriptions: No Action mv,Ca,xuz-[id number]-PL-lycopene [Centrum Men] 8 mg iron- 200 mcg-600 mcg tablet 1 tab PO DAILY Referrals: Ciaran Nguyễn MD [Primary Care Provider] - Stand Alone Forms: Patient Portal/API
[2024-08-04 09:40] VITALS: BP 153/91; PULSE 83; RESP 16; TEMP 36.8; O2SAT 95; BMI 24.4
--- NOTE | 2024-08-04 09:45 | DI.RAD.S_ITS ---
PROCEDURE: XR WRIST LT MIN 3V INDICATIONS: swelling, redness TECHNIQUE: 4 views of the wrist were acquired. COMPARISON: None. FINDINGS: Bones: No fractures or dislocations. No suspicious bony lesions. Soft tissues: No suspicious soft tissue calcifications. IMPRESSION: No visualized acute fracture or dislocation. However, if clinical concern and/or pain persist, short interval imaging followup in 7-10 days is recommended, as occult injury cannot be definitively excluded. Dictated by: Brigitte Bai M.D. on 08/04/2024 at 10:31 Approved by: Brigitte Bai M.D. on 08/04/2024 at 10:32
[2024-08-04] MEDS: IBUPROFEN 400 MG TABLET PO (10:26)
[2024-08-04 10:35] VITALS: BP 175/84; PULSE 84; O2SAT 92
--- NOTE | 2024-08-04 10:51 | PC.NURSE ---
Left wrist pain. Pt states he was doing a lot of twisting with his wrist when he started to develop pain and swelling in his wrist. PMS in tact
== END 2024-08-04 11:05 | disposition home or self-care (01) ==
PROVIDERS: Emergency Provider Emergency Medicine; PCP Internal Medicine
DX: M25.532 Pain in left wrist (principal)
CPT/HCPCS: 73110; 99283

== ENCOUNTER → 2024-08-15 11:03 | Outpatient (CLI) | payer MEDICARE, SELFPAY ==
[2024-08-15 12:59] LABS: Add Manual Diff / Slide Review NO; Basophils Absolute Auto 100 /uL (0-100); Basophils Percent Auto 0.6 % (0-2); Eosinophils Absolute Auto 100 /uL (0-450); Eosinophils Percent Auto 1.2 % (2-4); Hematocrit 43.5 % (41-53); Hemoglobin 14.5 g/dL (13.5-17.5); Lymphocytes Absolute Auto 2200 /uL (1100-4500); Lymphocytes Percent Auto 23.5 % (25-40); Mean Corpuscular HGB Conc 33.2 % (30-36); Mean Corpuscular Hemoglobin 32.1 PG (26-34); Mean Corpuscular Volume 96.5 fL (80-100); Monocytes Absolute Auto 900 /uL (0-900); Monocytes Percent Auto 9.1 % (3-14); Neutrophils Absolute Auto 6200 /uL (1500-7000); Neutrophils Percent Auto 65.6 % (50-75); Platelet Count 452 X10^3/uL (150-400); Red Blood Cell Count 4.51 X10^6/uL (4.5-5.9); Red Cell Distribution Width 12.5 % (11.6-14.8); White Blood Cell Count 9.5 X10^3/uL (4.5-11.0)
[2024-08-15 13:18] LABS: Alanine Aminotransferase 25 IU/L (<50); Albumin 4.3 g/dL (3.5-5.0); Albumin Globulin Ratio 1.2 (1.0-2.8); Alkaline Phosphatase 62 U/L (38-126); Aspartate Aminotransferase 28 IU/L (17-59); BUN Creatinine Ratio 23.8 (6-22); Bilirubin Total 0.4 mg/dL (0.2-1.3); Blood Urea Nitrogen 24 mg/dL (9-20); C-Reactive Protein Quant 5.1 mg/dL (<1.0); Calcium 9.8 mg/dL (8.4-10.2); Carbon Dioxide 31 mmol/L (22-32); Chloride 100 mmol/L (98-107); Creatine Kinase 90 U/L (55-170); Estimated Glomerular Filt Rate > 60 mL/min (>60); Globulin 3.7 g/dL (1.7-4.1); Glucose 117 mg/dL (80-110); HEMOLYSIS < 15 (0-50); Potassium 4.5 mmol/L (3.4-5.1); Sodium 138 mmol/L (137-145)
[2024-08-15 13:27] LABS: Erythrocyte Sedimentation Rate 65 MM/HR (0-15)
[2024-08-15 13:49] LABS: TSH w/ Reflex to FT4 2.14 uIU/mL (0.47-4.68)
== END ==
PROVIDERS: PCP Internal Medicine; Referring Provider Internal Medicine; Visit Provider Internal Medicine
DX: M79.10 Myalgia, unspecified site (principal); I10 Essential (primary) hypertension; M35.3 Polymyalgia rheumatica; E78.2 Mixed hyperlipidemia
CPT/HCPCS: 36415; 80053; 82550; 84443; 85025; 85651; 86140

== ENCOUNTER → 2025-08-23 09:39 | Outpatient (CLI) | payer MEDICARE, OTHER, SELFPAY ==
[2025-08-23 11:07] LABS: Hemoglobin A1C% w Est Avg Glu 5.9 % (4.0-6.0)
[2025-08-23 11:17] LABS: Cholesterol 231 mg/dL (140-199); HDL Cholesterol 37 mg/dL (40-60); Triglycerides 164 mg/dL (35-150)
== END ==
PROVIDERS: PCP Family Medicine; Referring Provider Family Medicine; Visit Provider Family Medicine
DX: Z00.00 Encounter for general adult medical examination without abnormal findings (principal); R73.01 Impaired fasting glucose; E78.2 Mixed hyperlipidemia
CPT/HCPCS: 36415; 80061; 83036